=== PATIENT | male | born 1935 | race Caucasian/White ===

== ENCOUNTER 2018-04-04 08:26 | Emergency (ER) | payer MEDICARE ==
[2018-04-04 09:16] LABS: #Eosinphils 0.1 thou/uL (0.0-0.7); #Lymphocytes 1.5 thou/uL (1.20-3.40); #Monocytes 1.1 thou/uL (0.11-0.59); #Neutrophils 7.9 thou/uL (1.40-6.50); %Eosinophils 0.6 % (0.0-10.0); %Lymphocytes 14.5 % (21.0-51.0); %Monocytes 10.7 % (0.0-10.0); %Neutrophils 74.2 % (42.0-75.0); Hemoglobin 12.5 g/dL (14.0-18.0); Mean Corpuscular HGB CONC 34.4 g/dL (32.0-36.0); Mean Corpuscular Hemoglobin 31.2 pg (27.0-31.0); Mean Corpuscular Volume 90.5 fL (78.0-98.0); Platelet Count 325 thou/uL (130-400); RBC Distribution Width 12.2 % (11.5-14.5); White Blood Cell (WBC) Count 10.6 thou/uL (4.8-10.8)
--- NOTE | 2018-04-04 09:30 | RAD ---
CHEST ONE VIEW: HISTORY: Shortness of breath. COMPARISON: None. FINDINGS: Heart size is mildly enlarged. The pulmonary arteries are dilated. There are bibasilar air space op acities, in somewhat of a linear orientation. No pneumothorax or large effusion. Right upper lobe l obectomy changes. Dense calcifications of the transverse aorta. Cerclage wires at the distal left clavicle. IMPRESSION: 1. Cardiomegaly with what appears to be mild bilateral lower lobe edema. Followup recommended. 2. Pulmonary arterial hypertension. POS: [facility]
[2018-04-04 09:42] LABS: ALT (SGPT) 15 U/L (8-55); AST (SGOT) 11 U/L (5-34); Alkaline Phosphatase 56 U/L (40-150); Anion Gap 13 mmol/L (10-20); BUN (Urea Nitrogen) 14 mg/dL (8.4-25.7); Bilirubin, Total 0.8 mg/dL (0.2-1.2); Calc. Creatinine Clearance 0 mL/min (70-130); Calcium 9.4 mg/dL (7.8-10.44); Carbon Dioxide 26 mmol/L (23-31); Chloride 102 mmol/L (98-107); Estimated GFR-MDRD 77; Globulin 3.2 g/dL (2.4-3.5); Glucose 134 mg/dL (83-110); Potassium 4.4 mmol/L (3.5-5.1); Protein, Total 7.2 g/dL (5.8-8.1); Sodium 137 mmol/L (136-145)
[2018-04-04 09:46] LABS: CKMB 0.6 ng/mL (0-6.6); Troponin I Less than 0.010 ng/mL (< 0.028)
[2018-04-04] MEDS ORDERED: methylPREDNISolone Sod Succ/PF 125 MG/2 ML VIAL ONE (10:09)
[2018-04-04] MEDS ORDERED: Water For Inject, Bacteriostat 0 ML ONE (10:09)
[2018-04-04] MEDS ORDERED: Furosemide 40 MG/4 ML VIAL ONE (10:32)
[2018-04-04 11:22] LABS: Bilirubin Negative (Negative); Blood, Urine Negative (Negative); Glucose, Urine (Dipstick) Negative (Negative); Leukocyte Negative (Negative); Nitrite Negative (Negative); Protein, Urine (Dipstick) Negative (Neg-Trace); Specific Gravity, Urine 1.015 (1.005-1.030); Urobilinogen 0.2 mg/dL (0.2-1.0); pH, Urine 7.5 (5.0-9.0)
[2018-04-04 11:23] LABS: Clarity Clear (Clear)
== END 2018-04-04 14:07 | disposition home or self-care (01) ==
LOC: ERS 08:26
DX: J44.9 Chronic obstructive pulmonary disease, unspecified (principal); I50.9 Heart failure, unspecified; I48.91 Unspecified atrial fibrillation; G47.30 Sleep apnea, unspecified; E11.9 Type 2 diabetes mellitus without complications; Z79.82 Long term (current) use of aspirin; Z79.84 Long term (current) use of oral hypoglycemic drugs; Z79.899 Other long term (current) drug therapy
CPT/HCPCS: 71045; 80053; 81003; 82553; 83880; 84484; 85025; 85379; 93005; 96374; 96375; J1940; J2270; J2930; J7620

== ENCOUNTER 2018-05-23 13:35 | Outpatient (CLI) | payer MEDICARE ==
--- NOTE | 2018-05-25 13:41 | PFT ---
PATIENT HISTORY: HEIGHT: 72 in WEIGHT: 290 SMOKER: NO HOW LON YRS PACKS PER DAY: 3 PRODUCTIVE COUGH: LUNG DISEASE: PHYSICIAN INTERPRETATION FINAL REPORT: FEV1 is 2.26 liters which 73% predicted. Forced vital capacity 3.7 liters which is 89% predicted. The FEV1/FVC ratio is 58. There is no significant improvement in air flows after bronchodilatation. The residual volume and total lung capacities are normal. The DLCO is 15.38 which is 54% predicted and does not correct for volume. Maximal mandatory volume is 55 liters per minute which is low for this FEV1. IMPRESSION: Moderate obstructive pulmonary impairment is present. There is no significant reversibility after bronchodilatation. The gas exchange is decreased. Maximum Ventilatory Volume is low, which indicates the patient either gave insufficient effort or neuromuscular weakness. 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
== END 2018-05-23 13:36 | disposition home or self-care (01) ==
LOC: CP 13:35
PROVIDERS: ATTEND Internal Medicine Critical Care Medicine
DX: J44.9 Chronic obstructive pulmonary disease, unspecified (principal)
CPT/HCPCS: 94060; 94727; 94729

== ENCOUNTER 2018-07-09 01:23 | Inpatient (IN) | payer MEDICARE ==
[2018-07-09] MEDS ORDERED: Morphine 4 MG/ML VIAL ONE (01:59)
[2018-07-09 02:00] LABS: #Basophils 0.1 thou/uL (0.0-0.2); #Eosinphils 0.1 thou/uL (0.0-0.7); #Lymphocytes 1.7 thou/uL (1.20-3.40); #Monocytes 0.8 thou/uL (0.11-0.59); #Neutrophils 8.1 thou/uL (1.40-6.50); %Basophils 0.8 % (0.0-1.0); %Eosinophils 1.4 % (0.0-10.0); %Lymphocytes 15.7 % (21.0-51.0); %Monocytes 7.7 % (0.0-10.0); %Neutrophils 74.6 % (42.0-75.0); Hemoglobin 13.1 g/dL (14.0-18.0); Mean Corpuscular Volume 85.4 fL (78.0-98.0); Mean Platelet Volume 7.5 fL (7.4-10.4); Platelet Count 299 thou/uL (130-400); RBC Distribution Width 13.1 % (11.5-14.5); White Blood Cell (WBC) Count 10.8 thou/uL (4.8-10.8)
[2018-07-09 02:10] LABS: CKMB 1.2 ng/mL (0-6.6); Troponin I Less than 0.010 ng/mL (< 0.028)
[2018-07-09 02:12] LABS: ALT (SGPT) 17 U/L (8-55); AST (SGOT) 14 U/L (5-34); Albumin 4.2 g/dL (3.4-4.8); Alkaline Phosphatase 53 U/L (40-150); Anion Gap 19 mmol/L (10-20); BUN (Urea Nitrogen) 21 mg/dL (8.4-25.7); Bilirubin, Total 0.4 mg/dL (0.2-1.2); CK (CPK) 48 U/L (30-200); Calc. Creatinine Clearance 0 mL/min (70-130); Calcium 9.8 mg/dL (7.8-10.44); Carbon Dioxide 26 mmol/L (23-31); Chloride 99 mmol/L (98-107); Estimated GFR-MDRD 47; Globulin 3.2 g/dL (2.4-3.5); Glucose 143 mg/dL (83-110); Lipase 42 U/L (8-78); Potassium 4.8 mmol/L (3.5-5.1); Protein, Total 7.4 g/dL (5.8-8.1); Sodium 139 mmol/L (136-145)
[2018-07-09] MEDS ORDERED: Dextrose 5 %-0.45 % NaCl 1,000 ML IV SCH (05:24)
[2018-07-09] MEDS ORDERED: Morphine 4 MG/ML VIAL IV PRN (05:25)
[2018-07-09 05:29] VITALS: BMI 38.4
[2018-07-09] MEDS: Sodium Chloride 0.9% 1,000 ML IV SCH ×3 (06:25→20:58)
[2018-07-09] MEDS ORDERED: Dextrose 50% Abboject 50 ML SYRINGE SLOW IVP PRN (07:21)
[2018-07-09] MEDS ORDERED: HumaLOG 300 UNITS/3 ML VIAL SC PRN (07:21)
[2018-07-09] MEDS ORDERED: Dextrose 5% in Water 1,000 ML IV PRN (07:21)
[2018-07-09 08:42] LABS: ALT (SGPT) 14 U/L (8-55); AST (SGOT) 26 U/L (5-34); Albumin 3.8 g/dL (3.4-4.8); Alkaline Phosphatase 50 U/L (40-150); Anion Gap 14 mmol/L (10-20); BUN (Urea Nitrogen) 18 mg/dL (8.4-25.7); Bilirubin, Total 0.3 mg/dL (0.2-1.2); Calc. Creatinine Clearance 82 mL/min (70-130); Calcium 9.6 mg/dL (7.8-10.44); Carbon Dioxide 27 mmol/L (23-31); Chloride 101 mmol/L (98-107); Estimated GFR-MDRD 53; Globulin 3.6 g/dL (2.4-3.5); Glucose 123 mg/dL (83-110); Potassium 5.6 mmol/L (3.5-5.1); Protein, Total 7.4 g/dL (5.8-8.1); Sodium 136 mmol/L (136-145)
[2018-07-09] MEDS ORDERED: MAGNESIUM OXIDE 400 MG PO SCH (09:00)
[2018-07-09] MEDS ORDERED: [UNRECOGNIZED DRUG - OTHER] EA NARE SCH (09:00)
[2018-07-09] MEDS ORDERED: FLUTICASONE EA NARE SCH (09:00)
[2018-07-09] MEDS ORDERED: Heparin 5,000 UNITS/ML VIAL SC SCH (09:00)
[2018-07-09] MEDS ORDERED: UMECLIDIN EA NARE SCH (09:00)
[2018-07-09] MEDS ORDERED: Non-Formulary Item 1 EACH (Olmesartan Medoxomil [Benicar] 40 MG) PO SCH (09:00)
[2018-07-09] MEDS ORDERED: VILANTER EA NARE SCH (09:00)
[2018-07-09] MEDS: Famotidine/PF 20 mg/2ml Vial SLOW IVP SCH ×2 (09:07→20:51)
[2018-07-09] MEDS: Dronedarone HCl 400 MG TAB PO SCH ×2 (09:08→17:39)
[2018-07-09 10:14] LABS: Hemoglobin 12.7 g/dL (14.0-18.0); Mean Corpuscular HGB CONC 32.7 g/dL (32.0-36.0); Mean Corpuscular Hemoglobin 29.5 pg (27.0-31.0); Mean Corpuscular Volume 90.2 fL (78.0-98.0); Mean Platelet Volume 7.3 fL (7.4-10.4); Platelet Count 324 thou/uL (130-400); RBC Distribution Width 13.8 % (11.5-14.5); Red Blood Cell (RBC) Count 4.31 mill/uL (4.70-6.10); White Blood Cell (WBC) Count 9.5 thou/uL (4.8-10.8)
[2018-07-09 10:19] LABS: Band 2 % (5-11); Large Platelets SLIGHT; Lymphocytes 22 % (21-51); MDiff Complete? YES; Monocytes 8 % (0-10); Neutrophil 66 % (42-75); PLT Morphology Comment Appears Adequate; Polychromasia SLIGHT = 2-3 cells (100X) (0-2/hpf); Reactive Lymphocytes 2 % (0-10); Small Platelets SLIGHT
--- NOTE | 2018-07-09 10:34 | RAD ---
PORTABLE CHEST 1 VIEW: DATE: 07/09/2018. TIME: 2:04 a.m. HISTORY: Abdominal pain, nausea, and vomiting. FINDINGS: The heart size is borderline. No focal areas of consolidation, pneumothoraces, or pleural effusion i s seen. There is no evidence of ry pulmonary edema. IMPRESSION: No acute process. POS: [facility]
--- NOTE | 2018-07-09 10:51 | CT ---
PRELIMINARY REPORT/[facility]/EMERGENTY AFTER-HOURS PROCEDURE CT Abdomen and Pelvis With Intravenous Contrast CLINICAL HISTORY: 83 years old, male; Pain; Abdominal pain; Patient HX: Patient is an 83 year old male presenting to [facility] er for abdominal pain. Reports that pain started in the afternoon after having multiple bowel movem ents. Abdominal pain localized to mid abdomen, described as sharp, 9/10 on pain scale, intermittent, no alleviating or exacerbating factors. Reports nausea and non bloody non bilious vomit ing prior to er arrival. Reports nausea has resolved. States this afternoon he had constipation and w as straining to have a bowel movement. Reports 30 minutes after straining he had a soft bowel movemen t followed by a watery bowel movement. TECHNIQUE: Axial computed tomography images of the abdomen and pelvis with intravenous contrast. Coronal reforma tted images were created and reviewed. CONTRAST: 85 mL of [id number] administered intravenously. COMPARISON: No relevant prior studies available. FINDINGS: Lung bases: Mild emphysema. ABDOMEN: Liver: No acute findings. Fatty liver. No mass. Gallbladder and bile ducts: No calcified stones. No ductal dilation. Pancreas: No ductal dilation. No mass. Spleen: No acute findings. No mass. Adrenals: No mass. Kidneys and ureters: No acute findings. No hydronephrosis. No solid mass. Stomach and bowel: Mildly dilated fluid filled small bowel loops within the abdomen with scattered ai r-fluid levels. Bowel loops proximal and distal to these loops are nondilated. Trace mesenteric stran ding/edema. Colonic diverticulosis. PELVIS: Appendix: No findings to suggest acute appendicitis. Bladder: No acute findings. No mass. Reproductive: No acute findings. ABDOMEN and PELVIS: Intraperitoneal space: Trace cul-de-sac free fluid. No free air. Bones/joints: No acute fracture. Degenerative changes of the spine. Sacral Tarlov cyst. Soft tissues: Prior ventral hernia repair. Vasculature: Atherosclerotic calcifications of the aorta and branches including visceral artery and coronary calcifications. No abdominal aortic aneurysm. Lymph nodes: No lymphadenopathy. IMPRESSION: Focally dilated small bowel loops described above could relate to enteritis, partial small bowel obst ruction/ileus. Thank you for allowing us to participate in the care of your patient. Dictated and Authenticated by: Lew Ortega MD 07/09/2018 3:25 AM Central Time ([place] & [place]) FINAL REPORT EMERGENT AFTER HOURS CT OF ABDOMEN AND PELVIS PERFORMED WITH INTRAVENOUS CONTRAST ENHANCEMENT: HISTORY: Abdominal pain after having bowel movements. Abdominal pain is localized more to the mid abdomen. FINDINGS: The lung bases show some chronic-appearing change. There are fatty changes of the liver. The spleen is within normal limits of size. The pancreas and gallbladder regions appear unremarkable. Right and left adrenal glands and right and left kidneys are normal in size. The kidneys are nonobst ructed. There is no significant periaortic or mesenteric adenopathy. There is a focal group of mild ly dilated fluid-filled small bowel loops. There is a transition to normal caliber more distal small bowel. There are postoperative changes also seen. Surgical clips are seen in the omentum and what appears to be a prior ventral hernia repair. There is some trace edema change within the mesentery a ssociated with this. There is a calcified density seen anterior to the mid descending colon. This i s probably the sequelae of the previous surgery. CT OF PELVIS PERFORMED WITH CONTRAST ENHANCEMENT: Some sigmoid diverticulosis is noted. The appendix region appears unremarkable. IMPRESSION: 1. Postoperative changes with evidence of a previous ventral hernia repair. There is a group of mil dly dilated mid ileal small bowel loops with transition to more normal-caliber loops both proximal an d distal to this. I would suspect given the history of the surgery that this probably represents a p artial small bowel obstruction probably related to some adhesions. A focal enteritis would be a anot her possibility. I think this is somewhat less likely. 2. Sigmoid diverticulosis. 3. Fatty changes of the liver. 4. This report is in agreement with the temporary report issued by [facility]. POS: [facility]
[2018-07-09] MEDS: Morphine 2 MG/ML SYRINGE SLOW IVP PRN ×2 (11:19→14:19)
--- NOTE | 2018-07-09 11:30 | CON ---
DATE OF CONSULTATION: 07/09/2018 CHIEF COMPLAINT: Abdominal pain. HISTORY: This is an 83-year-old male who has a 12-hour history of central abdominal pain now more ri ght and left lower abdomen. He had vomiting yesterday. He has had loose stools for the last 2 weeks prior to this. He last had a bowel movement at 5:00 p.m. last night with some flatus. His last col onoscopy was more than 10 years ago in [facility]. PAST MEDICAL HISTORY: Significant for congestive heart failure, COPD, diabetes mellitus, morbid obes ity, atrial fibrillation. PAST SURGICAL HISTORY: Coronary stents about [address] Ni, he has had an umbilic al hernia repair and then a second ventral hernia repair with mesh years ago. He has had a cardiac a blation for atrial fibrillation. MEDICATIONS: Include carvedilol 25 daily, metformin 1000 b.i.d., mag ox 400 mg b.i.d., Torsemide 20 daily, Eliquis 5 b.i.d., glyburide 1.5, Multaq 400 b.i.d., Trelegy inhaler. ALLERGIES: He has an allergy to LISINOPRIL. SOCIAL HISTORY: He is . 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 No tobacco, social alcohol. PHYSICAL EXAMINATION: VITAL SIGNS: Temperature 98, pulse 58, blood pressure 149/64. GENERAL: He is a morbidly obese male. He is awake, alert. HEENT: Unremarkable. LUNGS: Clear. HEART: Regular rate and rhythm. ABDOMEN: Obese, soft. He has well healed surgical scar in the midline from previous hernia surgery. He has mild tenderness both right lower quadrant and left lower quadrant, no palpable hernias. Occ asional bowel sounds. EXTREMITIES: Unremarkable. LABORATORY AND X-RAY FINDINGS: His white count is 9.5, hemoglobin and hematocrit 12 and 38, platelet count 324. Electrolytes, sodium 136, potassium 5.6, chloride 101, creatinine 1.29, glucose of 123. He has his CT scan of the abdomen showing some focal areas of small bowel dilatation with some scatt ered air fluid levels. There is some mesenteric stranding and edema as well as diverticulosis. ASSESSMENT: Focally dilated small bowel loops consistent with possible partial small-bowel obstructi on versus ileus. PLAN: IV hydration, NG suction, Cardiology consultation and GI consultation.
[2018-07-09 11:50] LABS: Creatinine, Urine 85.34 mg/dL (63-166)
--- NOTE | 2018-07-09 12:27 | PDOC.EVN ---
Event Note - Event Note Event Note: h&p dictated [id number]
--- NOTE | 2018-07-09 12:33 | RAD ---
KUB: HISTORY: NG tube placement: FINDINGS: An NG tube tip is visualized. It is at the GE junction and should e advanced for more optimal placem ent. IMPRESSION: Nasogastric tube with the tip in the distal esophagus near the gastroesophageal junction and should b e advanced 3-4 inches. POS: [facility]
--- NOTE | 2018-07-09 13:22 | HP ---
CHIEF COMPLAINT: Abdominal pain. HISTORY OF PRESENT ILLNESS: This is an 83-year-old male with a history of congestive heart failure, COPD, atrial fibrillation, who presents with sudden onset of lower abdominal sharp, intermittent pain that started after having had multiple loose bowel movements. The pain is accompanied by nausea and nonbloody , nonbilious vomiting. This was the immediately preceded by an episode of constipation. After significant amount of straining, the patient had a solid bowel movement followed by the diarrheal one as noted above, and since that point in time has been experiencing sharp, intermittent, crampy abdominal pain. At the time of my evaluation, the patient has been medicated for pain with morphine and his nausea has resolved. He has no continued symptoms with treatment while at rest. His daughter and are with him at bedside. REVIEW OF SYSTEMS: As per HPI. Constitutional: No fevers, no chills, no significant weight loss or gain. HEENT: No new headaches, vision changes, lightheadedness or dizziness. Cardiovascular: Denies any chest pain, chest pressure, shortness of breath which he states that he has a congestive heart failure exacerbation. Respiratory: Denies any shortness of breath with exertion or at rest. Denies any congestion or recent upper respiratory infection. Denies any recent cough. Gastrointestinal: As noted above. Genitourinary: Denies any dysuria or changes in urinary frequency, quality, quantity or odor. Musculoskeletal: Denies any new myalgias or arthralgias. PAST MEDICAL HISTORY: 1. As per above, significant for congestive heart failure, unknown EF. 2. Chronic COPD. 3. Atrial fibrillation. 4. Obstructive sleep apnea. 5. Type 2 diabetes. 6. Status post cardiac ablation. PAST SURGICAL HISTORY: 1. Status post cardiac stents x2 in 2016. 2. Status post pneumothorax with subsequent thoracotomy. 3. Status post hernia repair with mesh x2. 4. Status post left ankle surgery. HOME MEDICATIONS: As per EMR and include the following, 1. Fluticasone/umeclidinium/vilanterol 1 puff alternating naris daily. 2. Dronedarone HCL 400 mg p.o. b.i.d. 3. Glyburide 1.25 mg p.o. daily. 4. Apixaban 5 mg p.o. b.i.d. 5. Metformin 500 mg p.o. b.i.d. 6. Olmesartan-medoxomil 40 mg p.o. daily. 7. Magnesium oxide 400 mg p.o. b.i.d. 8. Furosemide 20 mg p.o. daily. ALLERGIES: No known drug allergies. FAMILY HISTORY: No notable family history for gastrointestinal disorders or obstruction that the patient is aware of. SOCIAL HISTORY: The patient is accompanied today by his and daughter. They are jointly his medical decision makers if he is unable to make his own medical decision. He wishes to be FULL CODE at this point in time. No active tobacco, alcohol or illicit drug use. PHYSICAL EXAMINATION: GENERAL: The patient is awake, alert, appropriate, in no acute distress, lying in the hospital bed. HEENT: Normocephalic, atraumatic. Moist mucous membranes, equal ocular motions are intact. CARDIOVASCULAR: S1, S2, soft heart tones. No murmurs, rubs or gallops appreciated. Pulses 2+ bilateral upper extremities without pitting pedal edema. RESPIRATORY: Reasonable air movement. No wheezes, rales or rhonchi. No crackles. No conversational dyspnea, clear to auscultation bilaterally. ABDOMEN: Obese, large decreased but positive bowel sounds, soft, tender to palpation along the right and left flank, but no tenderness or pain without palpation. MUSCULOSKELETAL: Moving all 4 extremities independently and able to self- reposition in the bed. LABORATORY DATA AND IMAGIN. On 07/09/2018, abdomen and pelvis CT. Impression: "Focally dilated small bowel loops described above could relate to enteritis, partial small bowel obstruction/ileus." 2. On 07/09/2018, chest x-ray. Impression: "No acute process." 3. WBC 10.8, hemoglobin 13.1, hematocrit 38.5, platelets 299, sodium 139, potassium 4.8, chloride 99, bicarbonate 26, BUN 21, creatinine 1.45, glucose 143 , calcium 9.8, total bilirubin 0.4, AST 14, ALT 17, alkaline phosphatase 53. Troponin less than 0.1, total protein 7.4, albumin 4.2, lipase 42. ASSESSMENT AND PLAN: This is an 83-year-old male who presents with a chief complaint of sudden onset abdominal pain earlier today. 1. Abdominal pain with imaging suggestive of possibly small-bowel obstruction versus ileus versus enteritis without leukocytosis or any other signs and symptoms suggestive of infection. Suspect that this is less likely. We will continue to monitor closely with a low threshold for empiric antibiotics. Currently, the patient is n.p.o., IV fluids are ongoing for maintenance fluids. I appreciate surgical consultation as well. While the patient is n.p.o. with IV fluids, we will hold the patient's furosemide along with the patient's oral antihyperglycemic agents. Instead, the patient will have close hemodynamic monitoring along with glucose Accu-Cheks at bedside. Sliding scale insulin will be used if and as needed. 2. History of congestive heart failure. Please see the discussion of above. We will have to carefully monitor the patient's electrolytes as well. 3. Acute kidney injury with an unknown baseline creatinine. Patient is currently receiving IV fluids. We will recheck a BMP again in the morning and check urine electrolytes. 4. Type 2 diabetes. While the patient is n.p.o., we will continue with Accu- Cheks, but hold the patient's glyburide and metformin. 5. History of atrial fibrillation. Continue the patient on his home regimen. There is concern for a partial small-bowel obstruction. It appears that the patient is currently on Eliquis for secondary prevention of atrial fibrillation. We will currently withhold the patient's Eliquis in case he does need to go to the OR; however, if he appears to be significantly improving with medical management and will not need any operative procedure, then would resume Eliquis at that point in time. 6. Diet: N.p.o. 7. Activity: As tolerated. 8. Deep venous thrombosis prophylaxis: Sequentials. 9. Admit the patient inpatient FULL CODE. MTDD
[2018-07-09] MEDS: Ondansetron PF 4 MG/2 ML Vial IVP PRN (14:15)
--- NOTE | 2018-07-09 14:46 | CON ---
DATE OF CONSULTATION: 07/09/2018 REASON FOR CONSULTATION: Atrial fibrillation and anticoagulation therapy and recent small bowel obst ruction? PRIMARY FAMILY PRACTICE DOCTOR: Dr. Jackelyn Ni. HISTORY OF PRESENT ILLNESS: Mr. Mariscal is a very pleasant 83-year-old gentleman who recently presente d with abdominal discomfort. There is a question on small bowel obstruction. He has a history of at rial fibrillation, status post ablation. He is currently on Eliquis b.i.d. Last dose was last eveni ng. No PND, orthopnea, lower extremity edema, chest pain or pressure noted. Last echo dated 018 with LVEF of 55%-60% with moderate left atrial enlargement with no or AI present. PAST MEDICAL HISTORY: Diabetes mellitus, hypertension, vascular disease, hernia repair, ankle surger y, CAD status post stent placement. ALLERGIES: LISINOPRIL. HOME MEDICATIONS: Fluoxetine, metformin, magnesium, carvedilol, Lasix, olmesartan, Crestor, Eliquis and Multaq. PHYSICAL EXAMINATION: GENERAL: Patient is a pleasant male who is in no acute distress. The patient appears his stated age . VITAL SIGNS: Blood pressure 150/76, pulse , temperature 97.6. NEUROLOGIC: The patient is alert and oriented times 3 with no focal neurologic deficits. HEENT: Sclerae without icterus. Mouth has moist mucous membranes with normal pallor. NECK: No JVD. Carotid upstroke brisk. No bruits bilaterally. LUNGS: Clear to auscultation with unlabored respirations. BACK: No scoliosis or kyphosis. CARDIAC: Regular rate and rhythm with normal S1 and S2. No S3 or S4 noted. No significant rubs, mu rmurs, thrills, or gallops noted throughout the precordium. PMI is not displaced. There is no claudy ternal heave. ABDOMEN: Distended with decreased bowel sounds. EXTREMITIES: 2+ femoral and 2+ dorsalis pedis pulses. No cyanosis, clubbing, or edema. SKIN: No gross abnormalities. PERTINENT LABORATORY LABS: Hemoglobin 12.7, white blood cell count 9.5, platelet count 324,000, crea tinine 1.29. IMPRESSION: 1. ? small-bowel obstruction. 2. Atrial fibrillation on anticoagulation therapy. 3. Coronary artery disease, status post stent placement. RECOMMENDATIONS: Last dose of Eliquis was last evening. At this point, we will stop Eliquis and philly ce him on Lovenox 1 mg/kg subcu q.12. I have discussed with Dr. Rafael Rosario. If he does need to have an operation, it provides more flexibility and a more narrow window versus Eliquis. Last LVEF was f elt to be within normal limits dated 04/2018. Further recommendations per Dr. Jackelyn Ni in a.m.
--- NOTE | 2018-07-09 16:23 | PDOC.EVN ---
Event Note - Event Note Event Note: Chart reviewed. Patient seen. Will follow.
--- NOTE | 2018-07-09 18:16 | CON ---
DATE OF CONSULTATION: 07/09/2018 REQUESTING PHYSICIAN: Dr. Rafael Rosario. REASON FOR CONSULTATION: Abdominal pain. HISTORY OF PRESENT ILLNESS: Karlo Mariscal is an 83-year-old gentleman with a history of obesity, quynh nary artery disease, atrial fibrillation, status post ablation, on Eliquis, COPD, diabetes and conges tive heart failure. He has a history of a couple of ventral hernia repairs years ago. He says he rust s had a couple of colonoscopies, though the last time would have been just over 20 years ago and he d id have a history of colon polyps. He has no chronic gastrointestinal symptoms. He says for maybe t he past couple of weeks, his bowel pattern has changed a bit to a feeling of constipation, passage of a solid stool followed by passage of a lot of loose stool and this will occur about every other day. There is no melena or hematochezia. Yesterday, the same thing happened. He felt acutely constipat ed, spent a lot of time on the toilet straining, eventually had multiple loose bowel movements; [facility] er, this time it was followed by generalized abdominal pain. He describes the pain as being all over the abdomen centered around the umbilical area, but really in the upper and lower abdomen as well. The pain is fairly constant and unrelenting. After the pain, onset yesterday he ate a small dinner a nd had some Tums, but did not really feel like it helped. This morning, the pain was persistent and he became nauseated and had a couple episodes of nonbloody emesis. He presented to the hospital for evaluation. Laboratory studies show normal lipase, normal LFTs, but a CT of the abdomen and pelvis d emonstrates a group of mildly dilated mid ileal small bowel loops, with normal caliber bowel loops ariel th proximal and distal to this area. This is felt to represent probable partial bowel obstruction du e to adhesions, versus focal enteritis. There are no other acute processes in the abdomen. A nasoga stric tube was placed. The patient denies any current nausea. He has not vomited since he was here, he has not had any bowel movement today or passed any flatus since his arrival. He does not feel th e pain is much better, though morphine was good at alleviating this transiently. He has been evaluat ed by Dr. Rosario earlier today. REVIEW OF SYSTEMS: Full review of systems including constitutional, head, eyes, ears, nose, throat, GI, , cardiovascular, respiratory, musculoskeletal, and neurologic systems is negative except as no noemi in HPI. PAST MEDICAL HISTORY: Congestive heart failure, atrial fibrillation on Eliquis, COPD, obstructive sl eep apnea, morbid obesity, type 2 diabetes, status post cardiac ablation, status post cardiac stents x2 in 2016, status post pneumothorax, subsequent thoracotomy, status post hernia repair with mesh, x2 , status post left ankle surgery. ALLERGIES: No known drug allergies. HOME MEDICATIONS: Fluticasone/umeclidinium/vilanterol one puff alternating naris daily, dronedarone, glyburide, Eliquis, metformin, olmesartan/medoxomil, magnesium oxide 400 mg b.i.d., furosemide 20 mg daily. FAMILY HISTORY: Negative for gastrointestinal illness. SOCIAL HISTORY: No active tobacco, alcohol or drug abuse. PHYSICAL EXAMINATION: VITAL SIGNS: Temperature 97.6, pulse 52, blood pressure 150/76, 97% oxygen saturation on 2 liters na sendy cannula. GENERAL: An 83-year-old gentleman, obese, lying in bed comfortably in no acute distress. SKIN: No jaundice, no rash visible or palpable. EYES: No scleral icterus. Extraocular movements intact. ENT: Mucous membranes moist, no oral lesions. He has a nasogastric tube in the right naris. THYROID: Nontender to palpation. HEART: Regular rate and rhythm. LYMPH: No submandibular, supraclavicular lymphadenopathy. LUNGS: Distant breath sounds due to body habitus clear to auscultation bilaterally. ABDOMEN: He is obese. The abdomen is soft. There is some generalized mild tenderness to palpation throughout the abdomen, really nonfocal. No guarding or rebound tenderness. He has a vertical midli ne surgical scar, which is well healed. EXTREMITIES: No peripheral edema. VESSELS: Radial pulses 2+ bilaterally. NEUROLOGICAL: Cranial nerves II-XII intact bilaterally. No focal deficits. LABORATORY STUDIES: WBC 9.5, hemoglobin 12.7, platelets 324. Sodium 136, potassium 5.6, BUN 18, cre atinine 1.29, glucose 118. LFTs all normal with total bilirubin 0.3, alkaline phosphatase 50, AST 26 , ALT 14, albumin 3.8, lipase 42. IMAGING STUDIES: CT of the abdomen and pelvis from earlier today, as detailed in the HPI. ASSESSMENT AND PLAN: 1. Generalized abdominal pain. 2. Nausea and vomiting. 3. Partial small-bowel obstruction, with CT scan showing focal area of small bowel dilation in the m id ileum. I discussed with the patient and his family that the CT findings are suggestive of probabl e focal partial ileal obstruction. This could be secondary to adhesions or alternatively an acute en teritis. I think focal enteritis is a bit less likely. It would be reasonable to get stool studies for infectious pathogens when he starts having bowel movements again. There is really no utility to attempting any kind of endoscopy at this time. I would advise expectant management, n.p.o. status fo r now, await bowel function to return. He has already been evaluated by General Surgery and at this point, no operative intervention or exploration is planned. The patient is overdue for surveillance colonoscopy at some point, but I would certainly defer this to the outpatient setting at some point a fter these acute issues are resolved. Thank you for the consultation. Please call any time with questions or concerns.
[2018-07-09] MEDS: Enoxaparin Sodium 100 MG/ML SYRINGE SC SCH (20:48)
[2018-07-09] MEDS: Enoxaparin Sodium 30 MG/0.3 ML SYRINGE SC SCH (20:49)
[2018-07-09] MEDS ORDERED: Enoxaparin Sodium 120 MG/0.8 ML SYRINGE SC SCH (21:00)
[2018-07-10 05:15] LABS: #Eosinphils 0.1 thou/uL (0.0-0.7); #Lymphocytes 1.5 thou/uL (1.20-3.40); #Monocytes 0.8 thou/uL (0.11-0.59); %Eosinophils 1.6 % (0.0-10.0); %Lymphocytes 20.4 % (21.0-51.0); %Monocytes 10.3 % (0.0-10.0); %Neutrophils 67.7 % (42.0-75.0); Hemoglobin 12.3 g/dL (14.0-18.0); Mean Corpuscular HGB CONC 32.1 g/dL (32.0-36.0); Mean Corpuscular Hemoglobin 29.1 pg (27.0-31.0); Mean Corpuscular Volume 90.7 fL (78.0-98.0); Mean Platelet Volume 7.4 fL (7.4-10.4); Platelet Count 315 thou/uL (130-400); RBC Distribution Width 13.4 % (11.5-14.5); Red Blood Cell (RBC) Count 4.22 mill/uL (4.70-6.10); White Blood Cell (WBC) Count 7.3 thou/uL (4.8-10.8)
[2018-07-10 05:26] LABS: Anion Gap 11 mmol/L (10-20); BUN (Urea Nitrogen) 13 mg/dL (8.4-25.7); Calc. Creatinine Clearance 97 mL/min (70-130); Calcium 8.8 mg/dL (7.8-10.44); Carbon Dioxide 26 mmol/L (23-31); Chloride 106 mmol/L (98-107); Estimated GFR-MDRD 65; Glucose 123 mg/dL (83-110); Potassium 4.3 mmol/L (3.5-5.1); Sodium 139 mmol/L (136-145)
[2018-07-10] MEDS: Ipratropium Bromide 2.5 ml Neb NEB SCH ×4 (06:13→19:53)
[2018-07-10] MEDS: Mometasone/Formoterol 120 PUFF INHALER INH SCH ×2 (06:15→19:51)
[2018-07-10] MEDS: Dronedarone HCl 400 MG TAB PO SCH ×2 (07:42→15:49)
[2018-07-10] MEDS: Sodium Chloride 0.9% 1,000 ML IV SCH ×3 (08:41→21:31)
[2018-07-10] MEDS: Enoxaparin Sodium 30 MG/0.3 ML SYRINGE SC SCH ×2 (08:42→21:13)
[2018-07-10] MEDS: Enoxaparin Sodium 100 MG/ML SYRINGE SC SCH ×2 (08:42→21:13)
[2018-07-10] MEDS: Famotidine/PF 20 mg/2ml Vial SLOW IVP SCH ×2 (08:43→21:14)
--- NOTE | 2018-07-10 09:51 | PRG ---
DATE OF SERVICE: 07/10/2018. SUBJECTIVE: Mr. Mariscal is feeling a lot better. His abdominal pain resolved yesterday afternoon and has not recurred. He is not having any nausea or vomiting. He has been passing gas, though no bowel movements yet. OBJECTIVE: VITAL SIGNS: Temperature 98.1, pulse 63, blood pressure 147/76, 95% oxygen saturation on 2 liters na sendy cannula. GENERAL: No acute distress. HEART: Regular rate and rhythm. LUNGS: Clear to auscultation bilaterally. ABDOMEN: Obese, bowel sounds are present, though hypoactive. The abdomen is soft and nontender to p alpation throughout. EXTREMITIES: No peripheral edema. LABORATORY STUDIES: WBC 7.3, hemoglobin 12.3, platelets 315. Sodium 139, potassium 4.3, BUN 13, cre atinine 1.09, glucose 114. IMAGING STUDIES: Abdominal x-ray from earlier today demonstrates some interval decrease in caliber o f distended small bowel loops. There is air in the colon. NG tube is in good position. ASSESSMENT AND PLAN: 1. Generalized abdominal pain, resolved. 2. Nausea and vomiting, improved. 3. Partial small-bowel obstruction, clinically appears to be improving. The patient has had good sy mptomatic improvement over the past day. I would leave dietary advancement decisions to the surgical team, they may want to get a Gastrografin small bowel follow-through but otherwise, I think that the patient's diet could be advanced today and if no recurrence of significant abdominal pain hopefully he could be discharged from the hospital within the next day. No plan for any endoscopy at this poin t. We will plan to see him back in clinic in the next couple of weeks, and at that time, we will dis cuss whether he wants to have a surveillance colonoscopy at some point in the near future. Please call back anytime with questions or concerns.
--- NOTE | 2018-07-10 09:51 | RAD ---
ABDOMEN ONE VIEW: History: 83-year-old male with history of small bowel obstruction. Comparison: 07-09-18 FINDINGS: NG tube is in place. There is some persistent gas and at least borderline sized small bowel. There is also some gas noted within the colon. There appears to be less small bowel distention than seen on t he prior study. IMPRESSION: Resolving small bowel obstruction. Consider short term follow up or Gastrografin small bowel for furt her assessment. POS: KIRSTIE
--- NOTE | 2018-07-10 10:40 | PRG ---
DATE OF SERVICE: 07/10/2018 SUBJECTIVE: The patient reports that he is feeling a little better, really having no pain. He is pa ssing some gas, no nausea or vomiting. OBJECTIVE: VITAL SIGNS: Temperature is 98.1, pulse 63, blood pressure 147/76. GENERAL: He is looking good. He is awake, alert, in no apparent distress. ABDOMEN: Obese, soft, no tenderness. His NG output about 300 mL. LABORATORY DATA: His white count 7, H and H 12 and 38, platelet count 315. Electrolytes are fine. KUB shows some improvement. PLAN: Small bowel follow through with Gastrografin.
--- NOTE | 2018-07-10 12:41 | PDOC.PN ---
- Subjective Encounter Start Date: 07/10/18 Encounter Start Time: 08:20 Pt seen for followup re: SBO. passing flatus. No BM yet. Abdo pain better. No nausea or vomiting. - Objective Resuscitation Status: Resuscitation Status FULL:Full Resuscitation MAR Reviewed: Yes Vital Signs & Weight: Vital Signs (12 hours) Temp Pulse Resp BP Pulse Ox 07/10/18 09:35 63 16 94 L 07/10/18 08:12 98.1 F 63 18 147/76 H 95 07/10/18 06:15 71 16 92 L 07/10/18 06:13 71 16 92 L 07/10/18 04:00 97.5 F L 69 18 154/80 H 91 L Weight Weight 283 lb 1.176 oz I&O: 07/09/18 07/10/18 07/11/18 06:59 06:59 06:59 Intake Total 800 Output Total 1450 Balance -650 Result Diagrams: 07/10/18 04:32 07/10/18 04:32 Additional Labs: Accuchecks 07/10/18 07/10/18 07/10/18 08:17 04:57 00:12 POC Glucose 114 H 117 H 114 H 07/09/18 07/09/18 20:05 17:02 POC Glucose 110 117 H labs reviewed by me Phys Exam - Physical Examination Obese HEENT: moist MMs, sclera anicteric, oral pharynx no lesions, 2+ tonsils Neck: no nodes, no JVD, supple, full ROM Respiratory: no wheezing, no rales, no rhonchi, clear to auscultation bilateral Cardiovascular: no rub, irregular S1, S2 Gastrointestinal: soft, non-tender, no distention, positive bowel sounds Neurological: moves all 4 limbs Psychiatric: normal affect, A&O x 3 Dx/Plan (1) SBO (small bowel obstruction) Code(s): K56.609 - UNSP INTESTNL OBST, UNSP TO PARTIAL VERSUS COMPLETE OBST Status: Acute Comment: clinically improving (2) Chronic a-fib Code(s): I48.2 - CHRONIC ATRIAL FIBRILLATION Status: Chronic Comment: rivaroxaban on hold, pt on therapeutic Lovenox (3) DM2 (diabetes mellitus, type 2) Status: Chronic Comment: continue accuchecks, insulin sliding scale - Plan * . Review of Systems - Review of Systems Constitutional: negative: fever, chills, sweats, weakness, malaise Respiratory: negative: Cough, Shortness of Breath, SOB with Excertion, Pleuritic Pain, Wheezing Cardiovascular: negative: chest pain, palpitations, orthopnea, paroxysmal nocturnal dyspnea, edema, light headedness Gastrointestinal: Abdominal Pain, Constipation. negative: Nausea, Vomiting, Diarrhea, Melena, Hematochezia, Other Genitourinary: negative: Dysuria, Frequency, Incontinence, Hematuria, Retention Skin: negative: Rash, Lesions, Jose, Bruising - Medications/Allergies Allergies/Adverse Reactions: Allergies Allergy/AdvReac Type Severity Reaction Status Date / Time No Allergy Information Allergy Verified 07/09/18 05:56 Available Medications: Current Medications Dextrose/Water (Dextrose 50%) 25 gm SLOW IVP PRN PRN PRN Reason: Hypoglycemia Dronedarone (Multaq) 400 mg PO BID-WM [facility] Last Admin: 07/10/18 07:42 Dose: Not Given Enoxaparin Sodium (Lovenox) 100 mg SC 0900,2099 [facility] Last Admin: 07/10/18 08:42 Dose: 100 mg Enoxaparin Sodium (Lovenox) 30 mg SC 0900,2100 [facility] Last Admin: 07/10/18 08:42 Dose: 30 mg Famotidine (Pepcid) 20 mg SLOW IVP Q12HR [facility] Last Admin: 07/10/18 08:43 Dose: 20 mg Glucagon (Glucagon) 1 mg IM PRN PRN PRN Reason: Hypoglycemia Sodium Chloride (Normal Saline 0.9%) 1,000 mls @ 100 mls/hr IV .Q10H [facility] Last Admin: 07/10/18 08:41 Dose: 1,000 mls Dextrose/Water (D5w) 1,000 mls @ 0 mls/hr IV .Q0M PRN PRN Reason: Hypoglycemia Insulin Human Lispro (Humalog) 0 units SC .MILD SLIDING SCALE PRN PRN Reason: Mild Correctional Scale Ipratropium [place] (Atrovent) 2.5 ml NEB QID-RT [facility] Last Admin: 07/10/18 09:35 Dose: 2.5 ml Mometasone Furoate/Formoterol Fumar (Dulera 100 Mcg/5 Mcg Inhaler) 2 puff INH BID-RT [facility] Last Admin: 07/10/18 06:15 Dose: 2 puff Morphine Sulfate (Morphine) 2 mg SLOW IVP Q4H PRN PRN Reason: Pain Last Admin: 07/09/18 14:19 Dose: 2 mg Ondansetron HCl (Zofran) 4 mg IVP Q6H PRN PRN Reason: Nausea/Vomiting Last Admin: 07/09/18 14:15 Dose: 4 mg Sodium Chloride (Flush - Normal Saline) 10 ml IVF Q12HR [facility] Last Admin: 07/10/18 08:43 Dose: Not Given Sodium Chloride (Flush - Normal Saline) 10 ml IVF PRN PRN PRN Reason: Saline Flush
--- NOTE | 2018-07-10 14:55 | RAD ---
SMALL BOWEL SERIES: HISTORY: An 83-year-old male with a history of follow-up small bowel obstruction. FINDINGS: The patient was given Gastrografin through the NG tube. Images were obtained out to 1 hour, which de monstrate contrast passage through a mildly dilated small bowel into a normal appearing terminal ileu m and extending throughout the colon. IMPRESSION: Partial small bowel obstruction with some dilatation of some of the mid small bowel loops but with ra pid progression of oral contrast through the entire small bowel and into the colon after one hour. POS: KIRSTIE
[2018-07-10] MEDS ORDERED: MD-Gastroview 120 ML BOT ONE (15:10)
[2018-07-10] MEDS: Morphine 2 MG/ML SYRINGE SLOW IVP PRN (15:29)
[2018-07-10] MEDS: Ondansetron PF 4 MG/2 ML Vial IVP PRN (15:29)
[2018-07-11] MEDS: Morphine 2 MG/ML SYRINGE SLOW IVP PRN ×2 (03:02→21:07)
[2018-07-11] MEDS: Ipratropium Bromide 2.5 ml Neb NEB SCH ×4 (06:37→18:13)
[2018-07-11] MEDS: Mometasone/Formoterol 120 PUFF INHALER INH SCH ×2 (06:39→18:12)
[2018-07-11] MEDS: Dronedarone HCl 400 MG TAB PO SCH ×2 (07:48→17:35)
--- NOTE | 2018-07-11 08:15 | PRG ---
DATE OF SERVICE: 07/11/2018 SUBJECTIVE: The patient reports that he is feeling better. He is having multiple bowel movements. No nausea or vomiting. His small bowel follow through showed some slight delay, but less than an yuridia r to the colon. PHYSICAL EXAMINATION: VITAL SIGNS: Temperature is 97.6, pulse 69, blood pressure 186/74. ABDOMEN: Soft, nondistended and nontender. ASSESSMENT: Small-bowel obstruction, resolved. PLAN: Discontinue NG, clear liquid diet.
[2018-07-11] MEDS: Famotidine/PF 20 mg/2ml Vial SLOW IVP SCH ×2 (08:21→19:33)
[2018-07-11] MEDS: Enoxaparin Sodium 30 MG/0.3 ML SYRINGE SC SCH ×2 (08:21→19:33)
[2018-07-11] MEDS: Enoxaparin Sodium 100 MG/ML SYRINGE SC SCH ×2 (08:21→19:33)
[2018-07-11] MEDS: Sodium Chloride 0.9% 1,000 ML IV SCH ×2 (08:26→19:33)
--- NOTE | 2018-07-11 16:52 | PDOC.PN ---
- Subjective Encounter Start Date: 07/11/18 Encounter Start Time: 10:00 Pt seen for followup re: SBO. Denies chest pain, shortness of breath, fevers or chills. Having bowel movements. - Objective Resuscitation Status: Resuscitation Status FULL:Full Resuscitation MAR Reviewed: Yes Vital Signs & Weight: Vital Signs (12 hours) Temp Pulse Resp BP Pulse Ox 07/11/18 16:00 98.1 F 68 18 162/72 H 95 07/11/18 13:32 74 16 95 07/11/18 10:58 97.4 F L 70 20 171/68 H 92 L 07/11/18 09:37 70 16 94 L 07/11/18 08:00 92 L 07/11/18 07:39 97.6 F 69 18 186/74 H 92 L 07/11/18 06:39 72 16 94 L 07/11/18 06:37 72 16 94 L Weight Admit Weight 283 lb 1.176 oz Weight 283 lb 1.176 oz I&O: 07/10/18 07/11/18 07/12/18 06:59 06:59 06:59 Intake Total 800 1200 960 Output Total 1450 50 Balance -650 1150 960 Result Diagrams: 07/10/18 04:32 07/10/18 04:32 Additional Labs: Accuchecks 07/11/18 07/11/18 07/11/18 10:50 07:28 03:08 POC Glucose 168 H 118 H 105 07/10/18 20:00 POC Glucose 113 H Labs reviewed by me Phys Exam - Physical Examination Constitutional: NAD HEENT: moist MMs Neck: supple Respiratory: clear to auscultation bilateral Cardiovascular: irregular Gastrointestinal: soft, non-tender, positive bowel sounds Musculoskeletal: edema present Neurological: moves all 4 limbs Psychiatric: normal affect Dx/Plan (1) SBO (small bowel obstruction) Code(s): K56.609 - UNSP INTESTNL OBST, UNSP TO PARTIAL VERSUS COMPLETE OBST Status: Acute Comment: Improving, having bowel movements. NG tube removed. On clear fluids. (2) Chronic a-fib Code(s): I48.2 - CHRONIC ATRIAL FIBRILLATION Status: Chronic Comment: continue therapeutic Lovenox, continue to hold rivaroxaban until discharge (3) DM2 (diabetes mellitus, type 2) Status: Chronic Comment: reasonably controlled - Plan * . Review of Systems - Review of Systems Cardiovascular: negative: chest pain, palpitations, orthopnea, paroxysmal nocturnal dyspnea, edema, light headedness Gastrointestinal: negative: Nausea, Abdominal Pain, Diarrhea, Melena, Hematochezia - Medications/Allergies Allergies/Adverse Reactions: Allergies Allergy/AdvReac Type Severity Reaction Status Date / Time No Allergy Information Allergy Verified 07/09/18 05:56 Available Medications: Current Medications Dextrose/Water (Dextrose 50%) 25 gm SLOW IVP PRN PRN PRN Reason: Hypoglycemia Dronedarone (Multaq) 400 mg PO BID-WM [facility] Last Admin: 07/11/18 07:48 Dose: Not Given Enoxaparin Sodium (Lovenox) 100 mg SC 0900,2100 [facility] Last Admin: 07/11/18 08:21 Dose: 100 mg Enoxaparin Sodium (Lovenox) 30 mg SC 0900,2100 [facility] Last Admin: 07/11/18 08:21 Dose: 30 mg Famotidine (Pepcid) 20 mg SLOW IVP Q12HR [facility] Last Admin: 07/11/18 08:21 Dose: 20 mg Glucagon (Glucagon) 1 mg IM PRN PRN PRN Reason: Hypoglycemia Sodium Chloride (Normal Saline 0.9%) 1,000 mls @ 100 mls/hr IV .Q10H [facility] Last Admin: 07/11/18 08:26 Dose: Not Given Dextrose/Water (D5w) 1,000 mls @ 0 mls/hr IV .Q0M PRN PRN Reason: Hypoglycemia Insulin Human Lispro (Humalog) 0 units SC .MILD SLIDING SCALE PRN PRN Reason: Mild Correctional Scale Ipratropium [place] (Atrovent) 2.5 ml NEB QID-RT [facility] Last Admin: 07/11/18 13:32 Dose: 2.5 ml Mometasone Furoate/Formoterol Fumar (Dulera 100 Mcg/5 Mcg Inhaler) 2 puff INH BID-RT [facility] Last Admin: 07/11/18 06:39 Dose: 2 puff Morphine Sulfate (Morphine) 2 mg SLOW IVP Q4H PRN PRN Reason: Pain Last Admin: 07/11/18 03:02 Dose: 2 mg Ondansetron HCl (Zofran) 4 mg IVP Q6H PRN PRN Reason: Nausea/Vomiting Last Admin: 07/10/18 15:29 Dose: 4 mg Sodium Chloride (Flush - Normal Saline) 10 ml IVF Q12HR [facility] Last Admin: 07/11/18 08:22 Dose: 10 ml Sodium Chloride (Flush - Normal Saline) 10 ml IVF PRN PRN PRN Reason: Saline Flush
[2018-07-12] MEDS: Sodium Chloride 0.9% 1,000 ML IV SCH ×2 (01:33→14:41)
[2018-07-12 05:06] LABS: #Eosinphils 0.1 thou/uL (0.0-0.7); #Lymphocytes 1.3 thou/uL (1.20-3.40); #Monocytes 0.8 thou/uL (0.11-0.59); #Neutrophils 5.3 thou/uL (1.40-6.50); %Basophils 0.2 % (0.0-1.0); %Eosinophils 1.7 % (0.0-10.0); %Lymphocytes 16.8 % (21.0-51.0); %Monocytes 10.5 % (0.0-10.0); %Neutrophils 70.9 % (42.0-75.0); Hemoglobin 11.6 g/dL (14.0-18.0); Mean Corpuscular HGB CONC 32.3 g/dL (32.0-36.0); Mean Corpuscular Hemoglobin 29.3 pg (27.0-31.0); Mean Corpuscular Volume 90.6 fL (78.0-98.0); Platelet Count 292 thou/uL (130-400); RBC Distribution Width 13.4 % (11.5-14.5); Red Blood Cell (RBC) Count 3.95 mill/uL (4.70-6.10); White Blood Cell (WBC) Count 7.4 thou/uL (4.8-10.8)
[2018-07-12 05:21] LABS: Anion Gap 11 mmol/L (10-20); BUN (Urea Nitrogen) 5 mg/dL (8.4-25.7); Calc. Creatinine Clearance 125 mL/min (70-130); Calcium 8.3 mg/dL (7.8-10.44); Carbon Dioxide 24 mmol/L (23-31); Chloride 106 mmol/L (98-107); Estimated GFR-MDRD 88; Glucose 116 mg/dL (83-110); Potassium 3.4 mmol/L (3.5-5.1); Sodium 138 mmol/L (136-145)
[2018-07-12] MEDS: Mometasone/Formoterol 120 PUFF INHALER INH SCH ×2 (06:51→19:32)
[2018-07-12] MEDS: Ipratropium Bromide 2.5 ml Neb NEB SCH ×4 (06:52→19:24)
[2018-07-12] MEDS ORDERED: Thrombin 5000 UNITS/5 ML VIAL ONE (08:02)
[2018-07-12] MEDS: Enoxaparin Sodium 30 MG/0.3 ML SYRINGE SC SCH (09:30)
[2018-07-12] MEDS: Enoxaparin Sodium 100 MG/ML SYRINGE SC SCH (09:31)
[2018-07-12] MEDS: Famotidine/PF 20 mg/2ml Vial SLOW IVP SCH (09:31)
[2018-07-12] MEDS: Dronedarone HCl 400 MG TAB PO SCH ×2 (09:31→16:37)
--- NOTE | 2018-07-12 10:32 | PRG ---
DATE OF SERVICE: 07/12/2018 SUBJECTIVE: The patient is feeling much better. He is tolerating liquids well. No nausea or vomiti ng. Bowels are functioning well. PHYSICAL EXAMINATION: VITAL SIGNS: Temperature 98.2, pulse 65, blood pressure 154/72. GENERAL: He looks good. ABDOMEN: Soft, nondistended. It is obese. No tenderness. ASSESSMENT: Small-bowel obstruction, resolved. PLAN: Advance diet. Discharge when okay with Medicine. Follow up with primary care physician. He will need to see GI for a colonoscopy in the future.
--- NOTE | 2018-07-12 14:27 | PDOC.PN ---
- Subjective Encounter Start Date: 07/12/18 Encounter Start Time: 14:25 Pt seen for followup re: campylobacter enteritis. Reports diarrhea, no other complaints. - Objective Resuscitation Status: Resuscitation Status FULL:Full Resuscitation Vital Signs & Weight: Vital Signs (12 hours) Temp Pulse Resp BP Pulse Ox 07/12/18 13:54 79 18 98 07/12/18 12:00 98.2 F 71 18 180/76 H 94 L 07/12/18 10:16 72 16 95 07/12/18 08:00 92 L 07/12/18 07:42 98.2 F 65 20 154/72 H 92 L 07/12/18 06:54 92 L 07/12/18 06:52 65 16 92 L 07/12/18 06:51 65 16 92 L Weight Admit Weight 283 lb 1.176 oz Weight 283 lb 1.176 oz I&O: 07/11/18 07/12/18 07/13/18 06:59 06:59 06:59 Intake Total 1200 2880 Output Total 50 Balance 1150 2880 Result Diagrams: 07/12/18 04:27 07/12/18 04:27 Additional Labs: Accuchecks 07/12/18 07/12/18 07/12/18 12:12 07:28 04:23 POC Glucose 94 122 H 116 H 07/12/18 07/11/18 07/11/18 00:13 19:45 16:19 POC Glucose 99 127 H 128 H Phys Exam - Physical Examination Obese HEENT: moist MMs Neck: supple Respiratory: clear to auscultation bilateral Cardiovascular: RRR Gastrointestinal: soft, non-tender, positive bowel sounds Neurological: moves all 4 limbs Psychiatric: normal affect Dx/Plan (1) Campylobacter enteritis Code(s): A04.5 - CAMPYLOBACTER ENTERITIS Status: Acute Comment: start azithromycin 500 mg PO daily x 3 days. Home later today or tomorrow if diarrhea resolves. (2) Chronic a-fib Code(s): I48.2 - CHRONIC ATRIAL FIBRILLATION Status: Chronic Comment: stop Lovenox, resume rivaroxaban (3) DM2 (diabetes mellitus, type 2) Status: Chronic Comment: controlled (4) SBO (small bowel obstruction) Code(s): K56.609 - UNSP INTESTNL OBST, UNSP TO PARTIAL VERSUS COMPLETE OBST Status: Resolved - Plan * . Review of Systems - Review of Systems Respiratory: negative: Cough, Shortness of Breath, SOB with Excertion, Pleuritic Pain, Wheezing Cardiovascular: negative: chest pain, palpitations, orthopnea, paroxysmal nocturnal dyspnea, edema, light headedness Gastrointestinal: Diarrhea. negative: Nausea, Vomiting, Abdominal Pain, Constipation, Melena, Hematochezia - Medications/Allergies Allergies/Adverse Reactions: Allergies Allergy/AdvReac Type Severity Reaction Status Date / Time No Allergy Information Allergy Verified 07/09/18 05:56 Available Medications: Current Medications Azithromycin (Zithromax) 500 mg PO DAILY [facility] Stop: 07/14/18 09:01 Dextrose/Water (Dextrose 50%) 25 gm SLOW IVP PRN PRN PRN Reason: Hypoglycemia Dronedarone (Multaq) 400 mg PO BID-WM [facility] Last Admin: 07/12/18 09:31 Dose: 400 mg Enoxaparin Sodium (Lovenox) 100 mg SC 0900,2100 [facility] Last Admin: 07/12/18 09:31 Dose: 100 mg Enoxaparin Sodium (Lovenox) 30 mg SC 0900,2100 [facility] Last Admin: 07/12/18 09:30 Dose: 30 mg Famotidine (Pepcid) 20 mg SLOW IVP Q12HR [facility] Last Admin: 07/12/18 09:31 Dose: 20 mg Glucagon (Glucagon) 1 mg IM PRN PRN PRN Reason: Hypoglycemia Sodium Chloride (Normal Saline 0.9%) 1,000 mls @ 100 mls/hr IV .Q10H [facility] Last Admin: 07/12/18 01:33 Dose: 1,000 mls Dextrose/Water (D5w) 1,000 mls @ 0 mls/hr IV .Q0M PRN PRN Reason: Hypoglycemia Insulin Human Lispro (Humalog) 0 units SC .MILD SLIDING SCALE PRN PRN Reason: Mild Correctional Scale Ipratropium [place] (Atrovent) 2.5 ml NEB QID-RT [facility] Last Admin: 07/12/18 13:54 Dose: 2.5 ml Mometasone Furoate/Formoterol Fumar (Dulera 100 Mcg/5 Mcg Inhaler) 2 puff INH BID-RT [facility] Last Admin: 07/12/18 06:51 Dose: 2 puff Morphine Sulfate (Morphine) 2 mg SLOW IVP Q4H PRN PRN Reason: Pain Last Admin: 07/11/18 21:07 Dose: 2 mg Sodium Chloride (Flush - Normal Saline) 10 ml IVF Q12HR [facility] Last Admin: 07/12/18 09:31 Dose: 10 ml Sodium Chloride (Flush - Normal Saline) 10 ml IVF PRN PRN PRN Reason: Saline Flush
[2018-07-12] MEDS: Azithromycin 250 MG TAB PO SCH (14:41)
[2018-07-12] MEDS: Apixaban 5 MG TAB PO SCH (20:33)
[2018-07-12] MEDS: Famotidine 20 MG TAB PO SCH (20:33)
[2018-07-13] MEDS: Sodium Chloride 0.9% 1,000 ML IV SCH ×2 (00:50→12:42)
[2018-07-13] MEDS: Ipratropium Bromide 2.5 ml Neb NEB SCH ×2 (06:15→10:12)
[2018-07-13] MEDS: Mometasone/Formoterol 120 PUFF INHALER INH SCH (06:18)
[2018-07-13] MEDS ORDERED: Meperidine HCl/PF 25 MG/ML VIAL ONE (08:02)
[2018-07-13] MEDS: Apixaban 5 MG TAB PO SCH (09:12)
[2018-07-13] MEDS: Famotidine 20 MG TAB PO SCH (09:12)
[2018-07-13] MEDS: Dronedarone HCl 400 MG TAB PO SCH (09:12)
[2018-07-13 11:35] VITALS: BP 163/78; TEMP 97.8
[2018-07-13] MEDS: Azithromycin 250 MG TAB PO SCH (12:55)
--- NOTE | 2018-07-14 15:10 | DIS ---
PRIMARY CARE PHYSICIAN: Dr. Vel Horne. DATE OF ADMISSION: 07/09/2018 DATE OF DISCHARGE: 07/13/2018 DISCHARGE DISPOSITION: Home. PRIMARY DISCHARGE DIAGNOSES: 1. Small-bowel obstruction, resolved. 2. Chronic respiratory failure secondary to chronic obstructive pulmonary disease. 3. Atrial fibrillation. 4. Obstructive sleep apnea. 5. Diabetes mellitus. 6. History of cardiac ablation. DISCHARGE MEDICATIONS: Include Zithromax 250 mg daily for 3 days, Benicar 40 mg daily, metformin 500 mg twice a daily, magnesium oxide 400 mg twice daily, glyburide 1.25 mg daily, Lasix 20 mg daily, fl uticasone/vilanterol one puff intranasally daily, Multaq 400 mg twice daily and Eliquis 5 mg twice a day. PROCEDURES DONE DURING ADMISSION: The patient had a CT scan of the abdomen and pelvis. This was don e on 07/09/2018 demonstrating postoperative changes of a previous ventral hernia repair. There is a group of mildly dilated mid ileal small bowel loops with a transition to more normal caliber loops, b oth proximal and distal to this which could represent a partial small-bowel obstruction. The patient had a small bowel x-ray on 07/10/2018 showing a partial small-bowel obstruction with some dilatation of some of the mid small bowel loops with rapid progression of the oral contrast to the entire small bowel into the colon after 1 hour. CODE STATUS: FULL CODE. ALLERGIES: No known drug allergies. HOSPITAL COURSE: Mr. Mariscal is an 83-year-old gentleman who was admitted to the hospital after he was having severe abdominal pain accompanied by nausea and vomiting; however, no hematemesis. He was ev aluated in the emergency room and found to have findings consistent with a partial small-bowel obstru ction. He was admitted and evaluated by both Gastroenterology as well as General Surgery. He was tr eated conservatively with bowel rest and NG tube suctioning. The partial bowel obstruction resolved spontaneously. It is recommended that he have a colonoscopy as an outpatient once this acute illness has resolved. He was also seen by Cardiology with regards to the atrial fibrillation. He was to ba sically continue his regular medications once the small-bowel obstruction had resolved. At the time of discharge, the patient was tolerating a solid diet and was subsequently discharged home and to [facility] close followup with his primary care physician in 1-2 weeks.
== END 2018-07-13 13:15 | disposition home or self-care (01) | DRG 372 ==
LOC: SCSER 01:23 → T4-A 04:19
PROVIDERS: ADMIT Internal Medicine; ATTEND Internal Medicine
DX: A04.5 Campylobacter enteritis (principal); N17.9 Acute kidney failure, unspecified; J96.10 Chronic respiratory failure, unspecified whether with hypoxia or hypercapnia; J44.9 Chronic obstructive pulmonary disease, unspecified; I48.2 Chronic atrial fibrillation; E11.9 Type 2 diabetes mellitus without complications; I25.10 Atherosclerotic heart disease of native coronary artery without angina pectoris; E66.01 Morbid (severe) obesity due to excess calories; I50.9 Heart failure, unspecified; K57.90 Diverticulosis of intestine, part unspecified, without perforation or abscess without bleeding; Z88.8 Allergy status to other drugs, medicaments and biological substances; G47.33 Obstructive sleep apnea (adult) (pediatric); Z95.5 Presence of coronary angioplasty implant and graft; Z68.38 Body mass index [BMI] 38.0-38.9, adult; Z79.84 Long term (current) use of oral hypoglycemic drugs; Z79.01 Long term (current) use of anticoagulants
CPT/HCPCS: 36415; 36416; 71045; 74018; 74177; 74250; 80048; 80053; 82550; 82553; 82570; 83690; 84484; 84540; 85025; 87045; 87046; 87324; 87449; 87899; 93005; 94640; 96361; 96374; J1650; J2175; J2270; J2405; J7644; S0028

== ENCOUNTER 2019-02-06 04:06 | Inpatient (IN) | payer MEDICARE ==
[2019-02-06] MEDS ORDERED: Ondansetron PF 4 MG/2 ML Vial ONE (04:30)
[2019-02-06] MEDS ORDERED: Morphine 4 MG/ML VIAL ONE ×2 (04:30→11:39)
[2019-02-06 04:46] LABS: #Basophils 0.1 thou/uL (0.0-0.2); #Eosinphils 0.1 thou/uL (0.0-0.7); #Lymphocytes 1.5 thou/uL (1.20-3.40); #Monocytes 0.9 thou/uL (0.11-0.59); #Neutrophils 8.9 thou/uL (1.40-6.50); %Basophils 0.6 % (0.0-1.0); %Eosinophils 1.1 % (0.0-10.0); %Lymphocytes 13.4 % (21.0-51.0); %Monocytes 7.4 % (0.0-10.0); %Neutrophils 77.3 % (42.0-75.0); Hemoglobin 12.9 g/dL (14.0-18.0); Mean Corpuscular HGB CONC 34.7 g/dL (32.0-36.0); Mean Corpuscular Hemoglobin 32.1 pg (27.0-31.0); Mean Corpuscular Volume 92.4 fL (78.0-98.0); Mean Platelet Volume 6.4 fL (7.4-10.4); Platelet Count 292 thou/uL (130-400); RBC Distribution Width 12.6 % (11.5-14.5); Red Blood Cell (RBC) Count 4.01 mill/uL (4.70-6.10); White Blood Cell (WBC) Count 11.5 thou/uL (4.8-10.8)
[2019-02-06 05:00] LABS: ALT (SGPT) 19 U/L (8-55); AST (SGOT) 14 U/L (5-34); Albumin 4.2 g/dL (3.4-4.8); Alkaline Phosphatase 46 U/L (40-150); Anion Gap 17 mmol/L (10-20); BUN (Urea Nitrogen) 19 mg/dL (8.4-25.7); Bilirubin, Total 0.4 mg/dL (0.2-1.2); Calc. Creatinine Clearance 0 mL/min (70-130); Calcium 9.7 mg/dL (7.8-10.44); Carbon Dioxide 24 mmol/L (23-31); Chloride 102 mmol/L (98-107); Estimated GFR-MDRD 48; Globulin 3.2 g/dL (2.4-3.5); Glucose 166 mg/dL (83-110); Lipase 35 U/L (8-78); Potassium 4.4 mmol/L (3.5-5.1); Protein, Total 7.4 g/dL (5.8-8.1); Sodium 139 mmol/L (136-145)
[2019-02-06 07:21] LABS: Bilirubin Negative (Negative); Blood, Urine Negative (Negative); Clarity Clear (Clear); Glucose, Urine (Dipstick) Negative (Negative); Leukocyte Negative (Negative); Nitrite Negative (Negative); Protein, Urine (Dipstick) Negative (Neg-Trace); Urobilinogen 0.2 mg/dL (0.2-1.0)
[2019-02-06] MEDS ORDERED: Benzocaine 20% Spray 60 ML CAN ONE (08:25)
--- NOTE | 2019-02-06 08:31 | CT ---
CT ABDOMEN AND PELVIS WITH IV CONTRAST: Date: 02/06/19 INDICATION: History of abdominal pain and vomiting. COMPARISON: Prior CT of the abdomen and pelvis dated 07/09/18. FINDINGS: There is mild left basilar atelectasis. There is stable fatty infiltration of the liver. The gallbladder, pancreas, adrenal glands, and spleen appear within normal limits. The kidneys are no rmal appearing. There are severe vascular calcifications involving the abdominopelvic vasculature. There are fluid-filled dilated loops of small bowel within the central abdomen with a transition zone seen anteriorly within the abdominal cavity, right of midline, near the right aspect of the anterior abdominal wall hernia mesh, and on image 70 of series 2. There are scattered diverticula involving t he colon. No free fluid is evident. Bladder, rectum, and perirectal soft tissues are unremarkable maría earing. No acute osseous abnormality is evident. There is scattered degenerative and osteoarthritic change. IMPRESSION: 1. Findings suspicious for a mild partial small bowel obstruction with a transition zone seen right of midline within the anterior abdomen adjacent to the anterior abdominal wall hernia mesh. 2. Fatty liver. 3. Colonic diverticulosis. 4. Other findings as above. POS: BH
--- NOTE | 2019-02-06 08:36 | RAD ---
XR Abdomen 1 View/KUB History: [NG tube placement] Comparison: CT abdomen and pelvis same day Findings: No enteric tube is appreciated on this examination. Surgical clips along the bilateral lowe r hemiabdomen. Prior ventral hernia repair. There is contrast within the urinary bladder. No dilated loops of large or small bowel. No acute osse ous abnormality. Impression: No enteric tube is appreciated on this exam.
--- NOTE | 2019-02-06 10:32 | RAD ---
XR Chest 1 View Portable History: [NG tube placement] Comparison: None. Findings: Enteric tube is in place tip poorly seen and may rest at the level of the T8 vertebra. This does not definitively extend below the hemidiaphragm. Suture right upper lobe. Heart size is enlarged. Mild pulmonary venous congestion. Impression: Enteric tube tip likely at the level of the T8 vertebral body. Retraction and advancement is recommended..
--- NOTE | 2019-02-06 11:58 | RAD ---
1 VIEW CHEST 2 VIEWS ABDOMEN: Date: 02/06/19 COMPARISON: 02/06/19. HISTORY: NG tube placement. FINDINGS: CHEST 1 VIEW: Stable changes to the lung parenchyma. Stable suture chain in the right suprahilar region. Stable car diomegaly and atherosclerosis. Chronic change in lung parenchyma noted. Nasogastric tube is demonstrated. Distal tip extends beyond the diaphragm and terminates in the stoma ch. 2 VIEWS ABDOMEN: Hyperdensity in urinary bladder. Bowel gas pattern redemonstrates air-filled loops of small bowel, pr edominantly in the left hemiabdomen. Nonspecific air fluid level in the right upper quadrant. No evid ence of pneumoperitoneum. IMPRESSION: 1. Dilated loops of small bowel in left hemiabdomen. 2. Atherosclerosis. 3. Nasogastric tube with distal tip terminating in epigastric region, likely in the distal stomach. POS: KIRSTIE
[2019-02-06] MEDS ORDERED: Ondansetron ODT 4 MG TAB SL PRN (12:57)
[2019-02-06] MEDS ORDERED: Ondansetron PF 4 MG/2 ML Vial IVP PRN (12:57)
[2019-02-06] MEDS ORDERED: Dextrose 5 % And 0.9 % NaCl 1,000 ML IV SCH (13:00)
[2019-02-06] MEDS ORDERED: HumaLOG 300 UNITS/3 ML VIAL SC PRN (13:37)
[2019-02-06] MEDS ORDERED: Dextrose 5% in Water 1,000 ML IV PRN (13:37)
[2019-02-06] MEDS ORDERED: Dextrose 50% Abboject 50 ML SYRINGE SLOW IVP PRN (13:37)
[2019-02-06] MEDS: Lactated Ringer's 1,000 ML IV SCH (14:14)
[2019-02-06] MEDS: Acetaminophen 1,000 MG in Premix Bag 1 BAG IVPB SCH ×2 (14:46→20:17)
[2019-02-06] MEDS ORDERED: Enoxaparin Sodium 40 MG/0.4 ML SYRINGE SC SCH (21:00)
--- NOTE | 2019-02-06 21:47 | HP ---
HISTORY OF PRESENT ILLNESS: Karlo Mariscal is an 83-year-old male who suffered the acute onset at 0500 hours this morning of abdominal distention, pain, nausea, and vomiting. He presented to the emergency room. CAT scan obtained revealed changes consistent with bowel obstruction with a transition zone. NG tube placed and verified radiologically. The patient is transferred for hydration and medical treatment. The patient was treated in 2017 for similar episode. At that point, he was seen by Dr. Ni, his waitress and noted was history of an echocardiogram that year 2017 that was normal. On 05/01/2018, the EF 55-60%, moderate left atrial enlargement with no or AI noted. History of atrial fibrillation status post ablation on Eliquis. Past history of coronary stent 3-[address] Gonsales at [facility], cardiac care assumed by Dr. Ni. PAST MEDICAL HISTORY: Includes diabetes mellitus type 2 on oral hyperglycemic, hypertension, coronary artery disease with coronary artery stent placement. He had a cardiac stress test 2-3 years ago chemical that was negative. Recent visit with Dr. Ni, EKG and evaluation, no change, asymptomatic from cardiac standpoint. PAST SURGICAL HISTORY: Umbilical hernia repair followed by recurrent hernia with repeat mesh repair, umbilical area, periumbilical incision in the . No evidence of recurrent hernia since that time. ORIF ankle. No prior colonoscopy. REVIEW OF SYSTEMS: Ten-point noncontributory. SOCIAL HISTORY: The patient is retired. FAMILY HISTORY: Noncontributory. PHYSICAL EXAMINATION: GENERAL: Morbidly obese. VITAL SIGNS: Blood pressure 152/72, pulse 74, respirations 20, weight 136 kg. HEENT: Unremarkable. LUNGS: Clear to auscultation. No wheezing. CARDIAC: Regular rate and rhythm without murmur or gallop. ABDOMEN: Soft, obese, protuberant, slightly tympanitic, nontender. No peritoneal signs. EXTREMITIES: Unremarkable. LABORATORY DATA: White count 11, hemoglobin 12.9. Basic metabolic profile normal with creatinine is 1.41, which is chronically intermittently elevated by computer result. CAT scan as noted results, oral and IV contrast used. Abdominal x-rays confirmed proper NG tube placement. ASSESSMENT/PLAN: 1. Recurrent small bowel obstruction. He has had no intervening symptoms since July last year. Plan would be to continue his nasogastric tube suction. Repeat abdominal x-rays and small-bowel follow-through tomorrow. Further recommendations pending clinical course. 2. Diabetes mellitus. We will continue sliding scale insulin coverage and monitoring his Accu-Cheks. 3. Hypertension. 4. Sleep apnea. Consult Respiratory for CPAP guidance and use this hospitalization. 5. On Eliquis, hold his Eliquis. 6. History of coronary artery disease on anticoagulation chronically, followed by Dr. Ni with history of atrial fibrillation with history of ablation. Job ID: [id number]
[2019-02-06 21:50] VITALS: BMI 40.6
[2019-02-07] MEDS: Lactated Ringer's 1,000 ML IV SCH ×3 (00:14→08:04)
[2019-02-07] MEDS: Acetaminophen 1,000 MG in Premix Bag 1 BAG IVPB SCH ×2 (02:08→08:12)
[2019-02-07] MEDS ORDERED: Pantoprazole 40 MG VIAL IVP SCH (09:00)
--- NOTE | 2019-02-07 10:32 | RAD ---
Exam: Abdomen 2 views: HISTORY: Small bowel obstruction COMPARISON: 02/06/2019 FINDINGS: An NG tube is in place. There is some oral contrast in the colon from the previous CT scan. Numerous postsurgical changes are noted in the mid abdomen. No evidence for free intraperitoneal air. No overt abnormally dilated bowel loops demonstrated. Patient is scheduled for a small bowel series to sherman tang this study. IMPRESSION: No evidence of overt abnormal dilated small bowel on this study.
--- NOTE | 2019-02-07 11:50 | RAD ---
Small bowel series with Gastrografin: HISTORY: Small bowel obstruction evaluation: COMPARISON: Abdomen 2 views, 02/07/2019 FINDINGS: Patient was given Gastrografin through the NG tube. 15 minute and 1 hour overhead films were performe d. There is rapid passage of contrast through nondilated nonobstructing small bowel. Contrast is definitely entering the colon by 1 hour. IMPRESSION: Rapid transit of contrast through nondilated nonobstructing small bowel entering the colon by 1 hour.
[2019-02-07 12:20] VITALS: TEMP 97.6
[2019-02-07] MEDS ORDERED: PROVENTIL INHALER 6.7 G (200 INHALATIONS) INH PRN ×2 (15:33→16:00)
[2019-02-07] MEDS ORDERED: Carvedilol 6.25 MG TAB PO SCH (16:30)
[2019-02-07] MEDS ORDERED: metFORMIN 500 MG TAB PO SCH (17:00)
[2019-02-07] MEDS ORDERED: Dronedarone HCl 400 MG TAB PO SCH (17:00)
[2019-02-07 17:26] VITALS: BP 131/78
[2019-02-07] MEDS ORDERED: Magnesium Oxide 400 MG TAB PO SCH (21:00)
[2019-02-08] MEDS ORDERED: Rosuvastatin 20 MG TAB PO SCH (07:30)
[2019-02-08] MEDS ORDERED: Torsemide 20 MG TAB PO SCH (09:00)
[2019-02-08] MEDS ORDERED: Non-Formulary Item 1 EACH (Fluticasone/Umeclidin/Vilanter [Trelegy Ellipta 100-62.5-25] 1 ALT NARE SCH (09:00)
--- NOTE | 2019-02-08 11:33 | DIS ---
DATE OF ADMISSION: 02/06/2019 DATE OF DISCHARGE: 02/07/2019 HISTORY OF PRESENT ILLNESS: Karlo Mariscal is an 83-year-old male patient, seen in the emergency room yesterday evening for complaints of abdominal pain, nausea, vomiting, and distention. CAT scan revealed changes consistent with bowel obstruction with a transition zone. NG tube placed, verified radiologically and had output out overnight. He was treated with intravenous fluids, NG tube to suction. Today, he underwent a small-bowel follow-through that was normal. He tolerated his diet. He has been discharged home at this time and will follow up in my office as needed. The patient has been followed by Dr. Ni, has a history echocardiogram in 2018. It was normal. History of atrial fibrillation, status post ablation, has been on Eliquis. He had a coronary artery stent placed 3 to [address] Bhardwaj at [facility]. The patient has an umbilical hernia repair in the past in the 90s, suffered recurrence, undergoing repeat repair with mesh. Otherwise, no other abdominal operations. No history of colonoscopy. HOSPITAL COURSE: The patient admitted, NG tube and with small bowel follow-through, have multiple bowel movements. No evidence of obstruction. He is discharged home to resume his home medications. Job ID: [id number]
== END 2019-02-07 17:48 | disposition home or self-care (01) | DRG 389 ==
LOC: SCSER 04:06 → SCSEROBS 08:35 → SURG A 12:37
PROVIDERS: ADMIT Specialist; ATTEND Specialist
DX: K56.609 Unspecified intestinal obstruction, unspecified as to partial versus complete obstruction (principal); Z68.41 Body mass index [BMI] 40.0-44.9, adult; I10 Essential (primary) hypertension; I25.10 Atherosclerotic heart disease of native coronary artery without angina pectoris; G47.00 Insomnia, unspecified; I48.91 Unspecified atrial fibrillation; E11.9 Type 2 diabetes mellitus without complications; E66.01 Morbid (severe) obesity due to excess calories; Z95.5 Presence of coronary angioplasty implant and graft; Z98.890 Other specified postprocedural states; Z79.01 Long term (current) use of anticoagulants
CPT/HCPCS: 36416; 71045; 74018; 74019; 74022; 74176; 74250; 80053; 81003; 83690; 85025; 96361; 96374; 96375; 96376; C9113; J0131; J1650; J2270; J2405

== ENCOUNTER 2020-05-23 06:17 | Outpatient (CLI) | payer MEDICARE, OTHER ==
[2020-05-23 14:02] LABS: #Eosinphils 0.1 thou/uL (0.0-0.7); #Lymphocytes 2.4 thou/uL (1.20-3.40); #Monocytes 0.8 thou/uL (0.11-0.59); #Neutrophils 5.7 thou/uL (1.40-6.50); %Basophils 0.3 % (0.0-1.0); %Eosinophils 1.4 % (0.0-10.0); %Lymphocytes 26.5 % (21.0-51.0); %Monocytes 8.8 % (0.0-10.0); %Neutrophils 63.1 % (42.0-75.0); Hemoglobin 13.4 g/dL (14.0-18.0); Mean Corpuscular HGB CONC 32.8 g/dL (32.0-36.0); Mean Corpuscular Hemoglobin 32.3 pg (27.0-31.0); Mean Corpuscular Volume 98.5 fL (78.0-98.0); Mean Platelet Volume 8.1 fL (7.4-10.4); Platelet Count 313 thou/uL (130-400); RBC Distribution Width 12.4 % (11.5-14.5); Red Blood Cell (RBC) Count 4.14 mill/uL (4.70-6.10); White Blood Cell (WBC) Count 9.1 thou/uL (4.8-10.8)
[2020-05-23 14:43] LABS: ALT (SGPT) 19 U/L (8-55); AST (SGOT) 16 U/L (5-34); Albumin 4.3 g/dL (3.4-4.8); Alkaline Phosphatase 45 U/L (40-110); Anion Gap 17 mmol/L (10-20); BUN (Urea Nitrogen) 18 mg/dL (8.4-25.7); Bilirubin, Total 0.5 mg/dL (0.2-1.2); Calc. Creatinine Clearance 0 mL/min (70-130); Calcium 9.2 mg/dL (7.8-10.44); Carbon Dioxide 24 mmol/L (23-31); Chloride 102 mmol/L (98-107); Estimated GFR-MDRD 64; Globulin 2.7 g/dL (2.4-3.5); Glucose 98 mg/dL (83-110); Potassium 4.8 mmol/L (3.5-5.1); Sodium 138 mmol/L (136-145)
[2020-05-24 14:48] LABS: SARS-CoV-2 MS2 Positive; SARS-CoV-2 N Gene Negative; SARS-CoV-2 S Gene Negative; SARS-CoV-2 by NAA Not Detected (NotDetected); SARS-CoV-2 orf1ab Negative
== END 2020-05-23 06:18 | disposition home or self-care (01) ==
LOC: LABBT 06:17
PROVIDERS: ATTEND Internal Medicine Cardiovascular Disease
DX: Z01.812 Encounter for preprocedural laboratory examination (principal); Z20.828 Contact with and (suspected) exposure to other viral communicable diseases; I25.10 Atherosclerotic heart disease of native coronary artery without angina pectoris; R06.00 Dyspnea, unspecified
CPT/HCPCS: 80053; 85025; U0003; 87635

== ENCOUNTER 2020-05-28 06:33 | Observation (INO) | payer MEDICARE ==
[2020-05-28] MEDS ORDERED: Lidocaine 1% (PF) 30 ML VIAL ONE (08:23)
[2020-05-28] MEDS ORDERED: Midazolam HCl 2 mg/2 ml Vial ONE ×3 (09:04→13:03)
[2020-05-28] MEDS ORDERED: Fentanyl 100 MCG/2 ML VIAL ONE ×2 (09:04→12:56)
[2020-05-28] MEDS ORDERED: Iopamidol 370 76% 100 ML VIAL ONE (09:11)
[2020-05-28] MEDS ORDERED: Verapamil 5 MG/2 ML VIAL ONE (10:10)
[2020-05-28] MEDS ORDERED: Heparin 10,000 UNITS/ 10 ML VIAL ONE ×2 (10:10→10:42)
[2020-05-28] MEDS ORDERED: Nitroglycerin 100MG/250ML BOT 250 ML ONE (10:10)
[2020-05-28] MEDS ORDERED: hydrALAZINE 20 MG/ML VIAL ONE (10:40)
[2020-05-28] MEDS ORDERED: TICAGRELOR 90 MG TABLET ONE (11:07)
[2020-05-28] MEDS ORDERED: Aspirin Chewable 81 MG TAB ONE (12:02)
[2020-05-28] MEDS ORDERED: Ondansetron PF 4 MG/2 ML Vial ONE (12:55)
[2020-05-28] MEDS ORDERED: Atropine Sulfate 1 mg/10 ml Syringe ONE (12:56)
[2020-05-28] MEDS ORDERED: Ketamine 50 MG/ML (10ML VIAL) ONE (13:03)
[2020-05-28] MEDS ORDERED: Ondansetron PF 4 MG/2 ML Vial IVP PRN (14:17)
[2020-05-28] MEDS ORDERED: Dextrose 50% Abboject 50 ML SYRINGE SLOW IVP PRN (14:17)
[2020-05-28] MEDS ORDERED: HumaLOG 300 UNITS/3 ML VIAL SC PRN (14:17)
[2020-05-28] MEDS ORDERED: Dextrose 5% in Water 1,000 ML IV PRN (14:17)
[2020-05-28] MEDS ORDERED: Acetaminophen 325 MG TAB PO PRN (14:17)
[2020-05-28] MEDS ORDERED: traMADol HCl 50 MG TAB PO PRN ×2 (14:17)
[2020-05-28] MEDS ORDERED: Fentanyl 100 MCG/2 ML VIAL SLOW IVP PRN ×2 (14:17)
[2020-05-28] MEDS ORDERED: Rocuronium Bromide 10 MG/ML (10ML VIAL) ONE (14:41)
[2020-05-28] MEDS ORDERED: Succinylcholine Chloride 20 MG/ML 10 ml SYRINGE FS ONE (14:41)
[2020-05-28] MEDS ORDERED: Esmolol 100 MG/10 ML VIAL ONE (14:41)
[2020-05-28] MEDS ORDERED: Glycopyrrolate 0.2 MG/ML 5 ML SYRINGE ONE (14:41)
[2020-05-28] MEDS ORDERED: EPHEDRINE 25 MG/5 ML SYRINGE ONE (14:41)
[2020-05-28] MEDS ORDERED: CEFAZOLIN 2 GM in Premix Bag 1 BAG IVPB SCH (15:00)
[2020-05-28 17:09] VITALS: BMI 39.9
[2020-05-28] MEDS: Carvedilol 3.125 MG TAB PO SCH (17:20)
[2020-05-28] MEDS: Dronedarone HCl 400 MG TAB PO SCH (17:20)
--- NOTE | 2020-05-28 18:11 | CON ---
DATE OF CONSULTATION: 05/28/2020 HISTORY OF PRESENT ILLNESS: Mr. Mariscal is an gentleman, who underwent cardiac catheterization today with stenting of his LAD. He was given Brilinta in the clinical laboratory service teacher. I had a very difficult time obtaining femoral artery access - the patient actually had a first attempt at right femoral access, which was unsuccessful and eventually, they were able to access his femoral area on the left. In the recovery area, apparently, he had some bleeding around the sheath and the sheath worked its way out and he has bled into his groin and has a significant deidre-stick hematoma/pseudoaneurysm. I was called urgently to see him for repair. PAST MEDICAL HISTORY: 1. Coronary artery disease. 2. Diabetes mellitus. 3. Hypertension. 4. Dyslipidemia. 5. Morbid obesity. PAST SURGICAL HISTORY: 1. Umbilical hernia repair. 2. Mesh repair of the hernia. 3. Periumbilical hernia repair in the . 4. ORIF of his ankle. SOCIAL HISTORY: He is retired. He is and accompanied by his and children. PHYSICAL EXAMINATION: GENERAL: On my arrival, the patient is in obvious discomfort. VITAL SIGNS: His heart rate was 100. Blood pressure was 80/60. This returned at 132/76 after a fluid bolus. Manual pressure was being held on his left groin. Due to the history, we did not elect to perform ultrasound or other diagnostic procedures and we are taking him directly to the operating room for emergency left femoral artery repair. Job ID: [id number]
--- NOTE | 2020-05-28 18:54 | OP ---
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 PROCEDURE PERFORMED: Primary repair of left external iliac artery pseudoaneurysm. PATCHER HELPER: Dr. Dior. ANESTHESIA: General endotracheal. ESTIMATED BLOOD LOSS: 200. DRAIN: 19-Sammarinese Johnson drain. DESCRIPTION OF PROCEDURE: The patient was emergently brought to the operating room and placed in supine position on the operating table. Manual pressure was held on the groin during transport and during prep. After the groin was prepped and draped in usual sterile fashion, general anesthesia had been induced. We made a transverse incision just above the stick site. It was so deep to get to his femoral artery, I could not actually palpate pulse and Doppler had to be used to locate femoral artery. Once we located the femoral artery, dissection was made both with electrocautery and with sharp dissection down to the femoral artery. There was no bleeding at the femoral artery at this level. We followed the femoral artery up to the inguinal ligament. Once we got to the inguinal ligament, part of the inguinal ligament was divided and followed underneath on to the external iliac artery, where we encountered the stick site on the medial edge of the external iliac artery. There were 2 separate stick sites that were bleeding. Both of these were controlled with 4-0 Prolene sfyxhu-ua-eaior sutures. Once hemostasis had been obtained, the wound was copiously irrigated. The 19-Sammarinese Johnson drain was placed and the fascia was reapproximated with interrupted 0 Vicryl suture. The wound was then closed in layers and skin was closed with clips. The patient tolerated the procedure well and was awakened, extubated, transferred to recovery room in stable condition. Job ID: [id number]
[2020-05-28 20:02] LABS: #Lymphocytes 1.6 thou/uL (1.20-3.40); #Monocytes 1.6 thou/uL (0.11-0.59); #Neutrophils 11.2 thou/uL (1.40-6.50); %Basophils 0.1 % (0.0-1.0); %Eosinophils 0.3 % (0.0-10.0); %Lymphocytes 11.3 % (21.0-51.0); %Monocytes 10.8 % (0.0-10.0); %Neutrophils 77.5 % (42.0-75.0); Mean Corpuscular Hemoglobin 32.5 pg (27.0-31.0); Mean Corpuscular Volume 98.7 fL (78.0-98.0); Mean Platelet Volume 7.8 fL (7.4-10.4); Platelet Count 276 thou/uL (130-400); RBC Distribution Width 12.6 % (11.5-14.5); Red Blood Cell (RBC) Count 3.69 mill/uL (4.70-6.10); White Blood Cell (WBC) Count 14.5 thou/uL (4.8-10.8)
[2020-05-28] MEDS ORDERED: Doxylamine 25 MG TAB PO PRN (20:09)
[2020-05-28] MEDS: Magnesium Oxide 400 MG TAB PO SCH (20:42)
[2020-05-28] MEDS: CEFAZOLIN 2 GM in Premix Bag 1 BAG IVPB SCH (20:42)
[2020-05-28] MEDS: TICAGRELOR 90 MG TABLET PO SCH (20:42)
[2020-05-29 04:54] LABS: #Lymphocytes 1.8 thou/uL (1.20-3.40); #Monocytes 1.1 thou/uL (0.11-0.59); #Neutrophils 8.1 thou/uL (1.40-6.50); %Basophils 0.1 % (0.0-1.0); %Eosinophils 0.3 % (0.0-10.0); %Lymphocytes 15.9 % (21.0-51.0); %Monocytes 10.3 % (0.0-10.0); %Neutrophils 73.4 % (42.0-75.0); Mean Corpuscular HGB CONC 32.9 g/dL (32.0-36.0); Mean Corpuscular Hemoglobin 32.8 pg (27.0-31.0); Mean Corpuscular Volume 99.7 fL (78.0-98.0); Mean Platelet Volume 7.8 fL (7.4-10.4); Platelet Count 259 thou/uL (130-400); RBC Distribution Width 12.4 % (11.5-14.5); Red Blood Cell (RBC) Count 3.36 mill/uL (4.70-6.10); White Blood Cell (WBC) Count 11.1 thou/uL (4.8-10.8)
[2020-05-29 05:10] LABS: Anion Gap 17 mmol/L (10-20); BUN (Urea Nitrogen) 16 mg/dL (8.4-25.7); Calc. Creatinine Clearance 102 mL/min (70-130); Calcium 8.3 mg/dL (7.8-10.44); Carbon Dioxide 20 mmol/L (23-31); Chloride 105 mmol/L (98-107); Estimated GFR-MDRD 68; Glucose 142 mg/dL (83-110); Potassium 4.7 mmol/L (3.5-5.1); Sodium 137 mmol/L (136-145)
[2020-05-29] MEDS: CEFAZOLIN 2 GM in Premix Bag 1 BAG IVPB SCH ×2 (06:20→13:59)
[2020-05-29] MEDS: Mometasone 100 MCG/PUFF (1 INHALER) INH SCH ×2 (07:17→19:25)
[2020-05-29] MEDS: Allopurinol 100 MG TAB PO SCH (08:34)
[2020-05-29] MEDS: Dronedarone HCl 400 MG TAB PO SCH ×2 (08:34→16:09)
[2020-05-29] MEDS: Aspirin 81 mg Enteric Coated Tablet PO SCH (08:34)
[2020-05-29] MEDS: Carvedilol 3.125 MG TAB PO SCH ×2 (08:34→16:09)
[2020-05-29] MEDS: TICAGRELOR 90 MG TABLET PO SCH (08:34)
[2020-05-29] MEDS: Magnesium Oxide 400 MG TAB PO SCH ×2 (08:34→20:50)
[2020-05-29] MEDS: FLUoxetine HCl 20 MG CAP PO SCH (08:35)
[2020-05-29] MEDS ORDERED: Furosemide 20 MG TAB PO SCH (09:00)
[2020-05-29] MEDS ORDERED: Clopidogrel Bisulfate 300 MG TAB PO SCH (16:00)
--- NOTE | 2020-05-29 18:02 | PRG ---
DATE OF SERVICE: 05/29/2020 SUBJECTIVE: Mr. Mariscal is doing well today, feels fine. No chest pain or pressure. OBJECTIVE: VITAL SIGNS: Blood pressure 133/64, pulse 67 and regular. LUNGS: Clear. CARDIAC: Normal S1, normal S2. He has a drain in place still with some blood from the drain in the left groin. ASSESSMENT: 1. Status post successful stent implantation in the LAD. 2. Difficult groin access, developed bleeding from the left groin, requiring urgent repair done by Dr. Whitt. PLAN: 1. I have taken him off the Brilinta and changed it to Plavix. 2. Aspirin. 3. We will not give him Eliquis for now. Hopefully, he be able to be released home tomorrow. Job ID: [id number]
[2020-05-29] MEDS ORDERED: Rosuvastatin 20 MG TAB PO SCH (21:00)
[2020-05-30 04:28] LABS: #Eosinphils 0.1 thou/uL (0.0-0.7); #Lymphocytes 1.6 thou/uL (1.20-3.40); #Neutrophils 5.2 thou/uL (1.40-6.50); %Basophils 0.1 % (0.0-1.0); %Eosinophils 0.7 % (0.0-10.0); %Lymphocytes 20.4 % (21.0-51.0); %Monocytes 12.5 % (0.0-10.0); %Neutrophils 66.3 % (42.0-75.0); Hemoglobin 9.9 g/dL (14.0-18.0); Mean Corpuscular HGB CONC 32.7 g/dL (32.0-36.0); Mean Corpuscular Hemoglobin 32.5 pg (27.0-31.0); Mean Corpuscular Volume 99.5 fL (78.0-98.0); Mean Platelet Volume 7.4 fL (7.4-10.4); Platelet Count 239 thou/uL (130-400); RBC Distribution Width 12.4 % (11.5-14.5); Red Blood Cell (RBC) Count 3.06 mill/uL (4.70-6.10); White Blood Cell (WBC) Count 7.9 thou/uL (4.8-10.8)
[2020-05-30 04:53] LABS: Anion Gap 14 mmol/L (10-20); BUN (Urea Nitrogen) 15 mg/dL (8.4-25.7); Calc. Creatinine Clearance 104 mL/min (70-130); Calcium 8.2 mg/dL (7.8-10.44); Carbon Dioxide 22 mmol/L (23-31); Chloride 105 mmol/L (98-107); Estimated GFR-MDRD 73; Glucose 142 mg/dL (83-110); Potassium 4.1 mmol/L (3.5-5.1); Sodium 137 mmol/L (136-145)
[2020-05-30] MEDS: Mometasone 100 MCG/PUFF (1 INHALER) INH SCH (07:26)
[2020-05-30 07:59] VITALS: BP 144/65; TEMP 98.1
[2020-05-30] MEDS ORDERED: metFORMIN 500 MG TAB PO SCH (08:00)
[2020-05-30] MEDS: Magnesium Oxide 400 MG TAB PO SCH (08:01)
[2020-05-30] MEDS: Carvedilol 3.125 MG TAB PO SCH (08:01)
[2020-05-30] MEDS: Aspirin 81 mg Enteric Coated Tablet PO SCH (08:01)
[2020-05-30] MEDS: Allopurinol 100 MG TAB PO SCH (08:01)
[2020-05-30] MEDS: Dronedarone HCl 400 MG TAB PO SCH (08:01)
[2020-05-30] MEDS: FLUoxetine HCl 20 MG CAP PO SCH (08:01)
[2020-05-30] MEDS ORDERED: Clopidogrel Bisulfate 75 MG TAB PO SCH (09:00)
[2020-05-30] MEDS ORDERED: Furosemide 20 MG TAB PO SCH (09:00)
--- NOTE | 2020-05-31 02:45 | DIS ---
DATE OF ADMISSION: 05/28/2020 DATE OF DISCHARGE: 05/30/2020 Mr. Mariscal is doing well today. This is an 85-year-old gentleman who presented with increasing amounts of shortness of breath with low-level activity, which was his identical symptom prior to stent implantation in the circumflex distribution 4 years ago. He was brought to the cardiac catheterization lab. He was found to have the followin. Very difficult access, unable to obtain access from the right groin due to severe obesity. 2. Difficult access from the left groin. Ultimately, access was able to be obtained, but it was very difficult. 3. Left main normal. No obstruction. 4. LAD had what appeared to be angiographically about a 60% narrowing, but fractional flow reserve revealed the FFR was below 0.6. Therefore, stent implantation was done. It was a 3.0 x 16 mm drug-coated stent that was postdilated with a high-pressure 3.25 mm balloon. The patient did not have any obstruction in the circumflex stents. In the right coronary, it looks like a nonobstructive 40% to 50% proximal plaque. The patient initially did well but then developed a very large hematoma in the left groin. I came to see the patient immediately, it looked like a small additional hematoma had formed, and it had actually pushed the sheath out of the artery and he had severe hematoma with hypotension. He was given atropine and fluid, stabilized, and taken promptly to the operating room. Dr. Otf Whitt repaired the artery puncture site. The patient did well following that. A drain was left in place. We kept an x-ray in the hospital to make sure he is stable and he did very well. The bottom line is that if he needs any further catheterization, it should be done from the right wrist if at all possible. The other option, if it is unable to obtain access from the wrist, would be catheterization again from the leg, but needs a higher quality ultrasound. The ultrasound that was available to us really gave very suboptimal imaging. The patient went home on the medicines identical to what he came in with the only changes as follows: 1. Took him off Eliquis for now. He is maintaining sinus rhythm. 2. He is on aspirin 81 mg a day. 3. Plavix 75 mg a day. We will see him in the office in 2 weeks. At that time, we will go ahead and resume the Eliquis and stop the aspirin and continue the Plavix as is the current protocol. The patient will be seen back in the office. FINAL DIAGNOSES: 1. Coronary artery disease with severe LAD stenosis, borderline stenosis in the right coronary, widely patent stent in the circumflex. 2. Paroxysmal atrial fibrillation, maintaining sinus rhythm. 3. Difficult to access problem as outlined above, ultimately did require repair of the left artery in the operating room. Dr. Whitt did indicate that the puncture site was just above the inguinal ligament, in the iliac. 4. Morbid obesity. Will be seen back in the office. Job ID: [id number]
== END 2020-05-30 10:30 | disposition home or self-care (01) ==
LOC: CCL 06:33 → 2NO 12:21
PROVIDERS: ADMIT Internal Medicine Cardiovascular Disease; ATTEND Internal Medicine Cardiovascular Disease
PROC: 027134Z Dilation of Coronary Artery, Two Arteries with Drug-eluting Intraluminal Device, Percutaneous Approach (ICD-10-PCS; principal; 2020-05-28)
PROC: 04VJ3DZ Restriction of Left External Iliac Artery with Intraluminal Device, Percutaneous Approach (ICD-10-PCS; 2020-05-28)
DX: I25.10 Atherosclerotic heart disease of native coronary artery without angina pectoris (principal); I48.0 Paroxysmal atrial fibrillation; E66.01 Morbid (severe) obesity due to excess calories; I11.0 Hypertensive heart disease with heart failure; I50.32 Chronic diastolic (congestive) heart failure; E11.9 Type 2 diabetes mellitus without complications; J44.9 Chronic obstructive pulmonary disease, unspecified; I73.9 Peripheral vascular disease, unspecified; E78.00 Pure hypercholesterolemia, unspecified; D50.8 Other iron deficiency anemias; Z68.38 Body mass index [BMI] 38.0-38.9, adult; Z79.01 Long term (current) use of anticoagulants; Z79.84 Long term (current) use of oral hypoglycemic drugs; Z79.899 Other long term (current) drug therapy; Z88.8 Allergy status to other drugs, medicaments and biological substances
CPT/HCPCS: 37242; 75630; 76942; 80048 ×2; 82962 ×3; 85025 ×3; 85347 ×2; 86850; 86900; 86901; 86920; 93454; 93571; 94640 ×3; 96374; 96376; 97139 ×2; C1769; C1874; C9600; G0378 ×3; 36415; 36416; 92928; 99152; 99153; J0153; J0360; J0461; J0690; J1642; J1644; J2001; J2250; J2405; J3010; J7620; Q9967

== ENCOUNTER 2020-09-08 15:36 | Inpatient (IN) | payer MEDICARE ==
--- NOTE | 2020-09-08 16:15 | RAD ---
PORTABLE CHEST: Indications: Headache, slurred speech. FINDINGS: Lung bennett appear clear. No infiltrate identified. Heart size upper normal. Aortic calcifications se en. IMPRESSION: No acute process. POS: AGW
--- NOTE | 2020-09-08 16:36 | CT ---
CT BRAIN NONCONTRAST: DATE: 09/08/2020 HISTORY: 85-year-old male with headache and dysarthria FINDINGS: There is no evidence of acute intra-axial or extra-axial hemorrhage. There is no midline shift or any other mass effect. There is no extra-axial fluid collection. There is no evidence of obstructive hydrocephalus. Calvarium is intact. IMPRESSION: No acute intracranial findings.
[2020-09-08 17:48] LABS: #Eosinphils 0.1 thou/uL (0.0-0.7); #Lymphocytes 1.9 thou/uL (1.20-3.40); #Monocytes 0.8 thou/uL (0.11-0.59); #Neutrophils 5.5 thou/uL (1.40-6.50); %Basophils 0.4 % (0.0-1.0); %Eosinophils 1.7 % (0.0-10.0); %Lymphocytes 22.7 % (21.0-51.0); %Monocytes 9.2 % (0.0-10.0); %Neutrophils 66.1 % (42.0-75.0); Hemoglobin 12.3 g/dL (14.0-18.0); Mean Corpuscular HGB CONC 32.2 g/dL (32.0-36.0); Mean Corpuscular Hemoglobin 30.5 pg (27.0-31.0); Mean Corpuscular Volume 94.8 fL (78.0-98.0); Platelet Count 325 thou/uL (130-400); RBC Distribution Width 13.1 % (11.5-14.5); Red Blood Cell (RBC) Count 4.03 mill/uL (4.70-6.10); White Blood Cell (WBC) Count 8.3 thou/uL (4.8-10.8)
[2020-09-08 17:52] LABS: INR-International Normal Ratio 1.1; PTT 34.6 sec (22.9-36.1); Prothrombin Time 14.2 sec (12.0-14.7)
[2020-09-08 18:05] LABS: ALT (SGPT) 15 U/L (8-55); AST (SGOT) 13 U/L (5-34); Albumin 4.1 g/dL (3.4-4.8); Alkaline Phosphatase 47 U/L (40-110); Anion Gap 16 mmol/L (10-20); BUN (Urea Nitrogen) 18 mg/dL (8.4-25.7); Bilirubin, Total 0.3 mg/dL (0.2-1.2); Calc. Creatinine Clearance 0 mL/min (70-130); Calcium 8.8 mg/dL (7.8-10.44); Carbon Dioxide 23 mmol/L (23-31); Chloride 108 mmol/L (98-107); Globulin 2.9 g/dL (2.4-3.5); Glucose 98 mg/dL (83-110); Potassium 4.8 mmol/L (3.5-5.1); Sodium 142 mmol/L (136-145)
[2020-09-08] MEDS ORDERED: Nitroglycerin 2% Ointment 1 INCH/1 GM Packet ONE (20:04)
[2020-09-08] MEDS ORDERED: hydrALAZINE 20 MG/ML VIAL ONE (20:04)
[2020-09-08] MEDS ORDERED: Aspirin 325 MG TAB ONE (20:15)
[2020-09-09 02:11] VITALS: BMI 40.8
--- NOTE | 2020-09-09 02:14 | PDOC.HHP ---
Hospitalist HPI - History of Present Illness Dyspepsia History of Present Illness: This is an 85-year-old male patient with a history of atrial fibrillation not on anticoagulation, CHF, COPD and SHARMILA who presents with a 2-day history of intermittent episodes of difficulty. Patient was in his usual state of health when the symptoms began. He has never experienced her symptoms before. He also stated no significant neurological deficits including facial droop, limb weakness or fall. On presentation to the ED his BP is varying between 1 88-2 36 systolic. His temperature was 97.9, respiratory 20, pulse 66 and saturating 97 on room air. Labs are generally unremarkable. CT scan of his head also showed no acute events. He was given aspirin and hydralazine and nitro. Hospitalist team was consulted for admission. Hospitalist ROS - Review of Systems Constitutional: denies: fever, chills, sweats, weakness Eyes: denies: pain, vision change, conjunctivae inflammation ENT: denies: ear pain, nose discharge, mouth swelling Respiratory: denies: cough, shortness of breath, hemoptysis Cardiovascular: denies: chest pain, palpitations, orthopnea Gastrointestinal: denies: nausea, vomiting, abdominal pain Genitourinary: denies: dysuria, frequency, incontinence Musculoskeletal: denies: neck pain, shoulder pain, arm pain Neurological: denies: weakness, incoordination All other systems reviewed; all pertinent +/- noted in HPI/Subj - Medication Medications: Medications: Currently refer to ambulatory list. Allergies: Lisinopril Hospitalist History - Past Medical History Other Medical History: Paroxysmal A. fib, SHARMILA, CHF - Family History Family History: reports: no pertinent history Other Family History: Ablation for A. fib, stents, hernia repair. - Social History Smoking Status: Never smoker Alcohol: reports: None - Exam General Appearance: awake alert Eye: PERRL, anicteric sclera ENT: normocephalic atraumatic, no oropharyngeal lesions, moist mucosa Neck: supple, symmetric Respiratory: CTAB, no wheezes, no rales, no ronchi Gastrointestinal: soft, non-tender, non-distended, normal bowel sounds Extremities: no cyanosis, no clubbing, no edema Skin: normal turgor, no lesions, no rashes Neurological: cranial nerve grossly intact, normal sensation to touch, no focal deficits Psychiatric: normal affect, normal behavior, A&O x 3 Hospitalist Results - Labs Result Diagrams: 09/08/20 17:34 09/08/20 17:34 Lab results: WBC 8.3 thou/uL (4.8-10.8) 09/08/20 17:34 Hgb 12.3 g/dL (14.0-18.0) L 09/08/20 17:34 Hct 38.2 % (42.0-52.0) L 09/08/20 17:34 MCV 94.8 fL (78.0-98.0) 09/08/20 17:34 Plt Count 325 thou/uL (130-400) 09/08/20 17:34 Neutrophils % 66.1 % (42.0-75.0) 09/08/20 17:34 Sodium 142 mmol/L (136-145) 09/08/20 17:34 Potassium 4.8 mmol/L (3.5-5.1) 09/08/20 17:34 Chloride 108 mmol/L (98-107) H 09/08/20 17:34 Carbon Dioxide 23 mmol/L (23-31) 09/08/20 17:34 BUN 18 mg/dL (8.4-25.7) 09/08/20 17:34 Creatinine 1.21 mg/dL (0.7-1.3) 09/08/20 17:34 Glucose 98 mg/dL (83-110) 09/08/20 17:34 Calcium 8.8 mg/dL (7.8-10.44) 09/08/20 17:34 Total Bilirubin 0.3 mg/dL (0.2-1.2) 09/08/20 17:34 AST 13 U/L (5-34) 09/08/20 17:34 ALT 15 U/L (8-55) 09/08/20 17:34 Alkaline Phosphatase 47 U/L (40-110) 09/08/20 17:34 Troponin I Less than 0.010 ng/mL (< 0.028) 09/08/20 17:34 Serum Total Protein 7.0 g/dL (5.8-8.1) 09/08/20 17:34 Albumin 4.1 g/dL (3.4-4.8) 09/08/20 17:34 Hospitalist H&P A/P - Plan Plan: This is an 85-year-old male patient with history of A. fib, CHF and SHARMILA who presents with a 2-day history of intermittent dysphagia. Initial symptoms were concerning for stroke/TIA. Stroke/TIA Started aspirinwe will continue We will start statin Echocardiogram lipid profile in a.m. PT a.m. Neurochecks, fall precautions Neuro consult. Hypertensive emergency. Patient BP improved with systolic in the 176/70. We will continue as needed IV medications at home blood pressure medications Close monitoring of BP. CODE STATUSfull code VT prophylaxisLovenox.
[2020-09-09 06:35] LABS: SARS-CoV-2 MS2 Positive; SARS-CoV-2 N Gene Negative; SARS-CoV-2 S Gene Negative; SARS-CoV-2 by NAA Not Detected (NotDetected); SARS-CoV-2 orf1ab Negative
[2020-09-09] MEDS ORDERED: Acetaminophen 325 MG TAB PO PRN (07:21)
[2020-09-09 08:15] LABS: #Eosinphils 0.1 thou/uL (0.0-0.7); #Lymphocytes 1.5 thou/uL (1.20-3.40); #Monocytes 0.7 thou/uL (0.11-0.59); #Neutrophils 5.5 thou/uL (1.40-6.50); %Basophils 0.6 % (0.0-1.0); %Eosinophils 1.6 % (0.0-10.0); %Neutrophils 69.8 % (42.0-75.0); Hemoglobin 12.2 g/dL (14.0-18.0); Mean Corpuscular Hemoglobin 30.1 pg (27.0-31.0); Mean Corpuscular Volume 94.1 fL (78.0-98.0); Mean Platelet Volume 7.5 fL (7.4-10.4); Platelet Count 319 thou/uL (130-400); RBC Distribution Width 12.9 % (11.5-14.5); Red Blood Cell (RBC) Count 4.05 mill/uL (4.70-6.10); White Blood Cell (WBC) Count 7.8 thou/uL (4.8-10.8)
[2020-09-09 08:29] LABS: Anion Gap 14 mmol/L (10-20); BUN (Urea Nitrogen) 14 mg/dL (8.4-25.7); Calc. Creatinine Clearance 116 mL/min (70-130); Carbon Dioxide 23 mmol/L (23-31); Cardiac Risk 2.8 (Less than 4.5); Chloride 106 mmol/L (98-107); Cholesterol 94 mg/dl (< 200 Desired); Glucose 138 mg/dL (83-110); HDL Cholesterol 33 mg/dL (>60 Neg Risk); LDL Cholesterol, Calculated 45 mg/dL; Potassium 4.5 mmol/L (3.5-5.1); Sodium 138 mmol/L (136-145); Triglycerides 81 mg/dL (Less than 150)
[2020-09-09] MEDS ORDERED: Aspirin Chewable 81 MG TAB ONE (08:42)
[2020-09-09] MEDS ORDERED: Enoxaparin Sodium 40 MG/0.4 ML SYRINGE ONE (08:42)
[2020-09-09] MEDS ORDERED: Enoxaparin Sodium 40 MG/0.4 ML SYRINGE SC SCH (09:00)
[2020-09-09] MEDS ORDERED: Aspirin 81 mg Enteric Coated Tablet PO SCH (09:00)
[2020-09-09] MEDS ORDERED: Acetaminophen 325 MG TAB ONE ×2 (09:30)
[2020-09-09] MEDS ORDERED: Lorazepam 2 MG/ML VIAL SLOW IVP SCH (10:00)
[2020-09-09] MEDS ORDERED: Iopamidol-370 76% 500 ML 1 ML ONE (12:52)
--- NOTE | 2020-09-09 13:38 | CT ---
CT ANGIOGRAM NECK WITH CONTRAST CT ANGIOGRAM BRAIN WITH AND WITHOUT CONTRAST: DATE: 09/09/2020 HISTORY: 85-year-old male with dizziness and dysarthria with headache and labile hypertension TECHNIQUE: Standard noncontrast brain CT performed first. After IV contrast injection, arterial bolus chasing technique scan performed from pulmonic trunk to v ertex of head. Coronal and sagittal 3-D MIP reconstructions. FINDINGS: There is no evidence of acute intra-axial or extra-axial hemorrhage. There is no midline shift or any other mass effect. There is no extra-axial fluid collection. There is no evidence of obstructive hydrocephalus. Calvarium is intact. There is diffuse brain parenchymal volume loss. Numerous biapical bullae plus centrilobular emphysematous changes in upper lobes. Right apical pulmon leila scar with suture line and calcification. Aortic arch: Heavy atherosclerotic calcification. No aneurysm or dissection. Brachiocephalic: Calcified plaque at origin and distally. No high-grade stenosis. Right subclavian: Distal calcified plaque at level of right vertebral artery origin. Questionable add itional noncalcified soft plaque (versus artifact) causes questionably severe stenosis (streak artifact from dense contrast material in adjacent right subclavian vein and brachiocephalic vein degr ades the images of this area. Left subclavian: Scattered calcified plaque. No severe stenosis identified. Right vertebral: Despite the heavily calcified plaque at the origin, the degree of stenosis there is probably mild. The rest of the proximal portions of the vessel are somewhat difficult to evaluate because of shoulders. No stenosis identified involving mid and distal cervical portions. Mild atheros clerosis with mild stenosis of intracranial portion. Left vertebral: Dominant side. No high-grade stenosis. Prominent calcified plaque at intracranial por tion without severe stenosis. Right common carotid: No high-grade stenosis. Medialized, retropharyngeal course distally. Left common carotid: No high-grade stenosis. Medialized, retropharyngeal course distally. Right internal carotid: Prominent calcified plaque at carotid bulb extending a length of 1 cm cephala d, causing mild, estimated 20-40% stenosis. Left internal carotid: Prominent calcified plaque at carotid bulb extending approximately 1 cm cephal ad. At the origin, degree of stenosis is estimated to be approximately 70 % Carotid siphons: Extensively calcified bilaterally, making it difficult to evaluate luminal caliber. Bilateral MCAs: No thrombosis, occlusion, or high-grade stenosis of M1 segments. M2 segments appear t o be patent. Bilateral ACAs: A1 and A2 segments are patent. Patent anterior communicating artery. No posterior communicating artery visualized. Basilar: Normal caliber. Bilateral salesforce specialist: Normal caliber P1 and P2 segments. Posterior communicating artery: None present. Bilateral superior cerebellar: Proximally patent Bilateral PICA: Proximally patent No intracranial aneurysm identified No dural venous sinus thrombosis. IMPRESSION: 1) atherosclerosis at multiple locations. 2) estimated approximate 70% stenosis at origin of left internal carotid. 3) questionable high-grade stenosis at right subclavian artery at level of vertebral artery takeoff, versus artifact. 4) no M1 segment thrombus/occlusion
--- NOTE | 2020-09-09 15:08 | CON ---
NEUROLOGY CONSULTATION DATE OF CONSULTATION: 09/09/2020 REASON FOR CONSULTATION: Dizziness/headache/two episodes of aphasia. HISTORY OF PRESENT ILLNESS: Mr. Mariscal is an 85-year-old male with medical history significant for atrial fibrillation, congestive heart failure, COPD, and obstructive sleep apnea, presented to the emergency room with two intermittent episodes of difficulty speaking receptive aphasia, which resolved on its own associated with headache. Per the patient, he was in usual state of health on . When he had a headache with an episode of aphasia during which he has difficulty talking, which lasted for few hours and resolved on its own. Then, he had another episode on Tuesday. He discussed this with his physician who decided to bring him to the emergency room for further evaluation. The patient denies any focal weakness, focal paresthesias, nausea, vomiting, chest pain, abdominal pain, recent illness or recent exposure to COVID, loss of vision or involuntary movements associated with the episode. He was given aspirin in the emergency room and on hydralazine and admitted for further evaluation. Head CT did not reveal any acute intracranial pathology. The patient still complains of dizziness and being unsteady on feet. REVIEW OF SYSTEMS: All systems reviewed and were negative except the pertinent positives and negatives mentioned in the HPI. HOME MEDICATIONS: Refer to reconciled medication list. ALLERGIES: LISINOPRIL. THE PATIENT DOES TAKE ASPIRIN, PLAVIX AND ELIQUIS. PAST MEDICAL HISTORY: Paroxysmal atrial fibrillation, obstructive sleep apnea, congestive heart failure. PAST FAMILY HISTORY: Not significant. SURGICAL HISTORY: Atrial fibrillation, on stents, hernia repair. SOCIAL HISTORY: The patient denies smoking, alcohol, illegal drug use. PHYSICAL EXAMINATION: General Appearance: awake alert Eye: PERRL, anicteric sclera ENT: normocephalic atraumatic, no oropharyngeal lesions, moist mucosa Neck: supple, symmetric Respiratory: CTAB, no wheezes, no rales, no ronchi Gastrointestinal: soft, non-tender, non-distended, normal bowel sounds Extremities: no cyanosis, no clubbing, no edema Skin: normal turgor, no lesions, no rashes Neurological: Mental status, the patient is alert and oriented to person, place, and time. Recent and remote memory intact. Fund of knowledge is appropriate. Speech is clear. Motor muscle tone and bulk are normal. Strength 5/5 bilaterally. Sensory intact. Cerebellar, finger-nose testing intact. Cranial nerves 2 through 12 intact. Gait deferred due to patient's safety reason. DATA REVIEWED: I reviewed the labs which were significant for anemia, hemoglobin of 12.3, hematocrit of 36.2. WBC 8.3 thou/uL (4.8-10.8) 09/08/20 17:34 Hgb 12.3 g/dL (14.0-18.0) L 09/08/20 17:34 Hct 38.2 % (42.0-52.0) L 09/08/20 17:34 MCV 94.8 fL (78.0-98.0) 09/08/20 17:34 Plt Count 325 thou/uL (130-400) 09/08/20 17:34 Neutrophils % 66.1 % (42.0-75.0) 09/08/20 17:34 Sodium 142 mmol/L (136-145) 09/08/20 17:34 Potassium 4.8 mmol/L (3.5-5.1) 09/08/20 17:34 Chloride 108 mmol/L (98-107) H 09/08/20 17:34 Carbon Dioxide 23 mmol/L (23-31) 09/08/20 17:34 BUN 18 mg/dL (8.4-25.7) 09/08/20 17:34 Creatinine 1.21 mg/dL (0.7-1.3) 09/08/20 17:34 Glucose 98 mg/dL (83-110) 09/08/20 17:34 Calcium 8.8 mg/dL (7.8-10.44) 09/08/20 17:34 Total Bilirubin 0.3 mg/dL (0.2-1.2) 09/08/20 17:34 AST 13 U/L (5-34) 09/08/20 17:34 ALT 15 U/L (8-55) 09/08/20 17:34 Alkaline Phosphatase 47 U/L (40-110) 09/08/20 17:34 Troponin I Less than 0.010 ng/mL (< 0.028) 09/08/20 17:34 Serum Total Protein 7.0 g/dL (5.8-8.1) 09/08/20 17:34 Albumin 4.1 g/dL (3.4-4.8) 09/08/20 17:34 ASSESSMENT AND PLAN: Mr. Mariscal is an 85-year-old male with history significant for atrial fibrillation, congestive heart failure, obstructive sleep apnea, presented with two intermittent episodes of difficulty in speech. The symptoms were concerning for TIA. The patient continues to be unsteady at feet and feels dizzy. Rest of the symptoms were resolved. There is still concern of posterior circulation, TIA/stroke. Continue aspirin, Plavix, and Eliquis for secondary stroke prevention. Consider MRI of the brain to assess acute intracranial process, CTA of the head and neck, 2D echo to evaluate left ventricular ejection fraction. Continue high-intensity statin for secondary stroke prevention. EEG to rule out cortical irritability. Neuro checks every 4 hours. Permissive control of blood pressure at this time. Strict control of blood glucose. Check orthostatics. Telemetry to rule out arrhythmia, PT/OT/speech. Fall precautions. Continue home medications. Check hemoglobin A1c, fasting lipid panel, and TSH. Control of blood glucose. Continue medical management per primary team. We will continue to follow. Plan discussed in detail with the patient, at bedside and also with the primary attending Dr. Porter Thank you for the consult. Job ID: [id number] MTDD
[2020-09-09] MEDS ORDERED: Lorazepam 2 MG/ML VIAL ONE (15:34)
--- NOTE | 2020-09-09 16:24 | MRI ---
EXAM: MRI Brain WO Con PROVIDED CLINICAL HISTORY: TIA. Patient with dizziness and difficulty forming words. Headache and fluctuating blood pressure. COMPARISON: CT head ON 09/09/2020. FINDINGS: Few nonspecific scattered punctate areas of increased FLAIR and T2-weighted signal intensity are seen which are nonspecific and of uncertain etiology but may related to mild chronic small vessel ischemic changes. There are no areas of restricted diffusion seen to suggest an acute infarction. There is an oval-shaped dural-based mass just medial to the right occipital lobe along the interhemis pheric fissure which demonstrates intermediate T2 and increased FLAIR signal intensity and is most suggestive of a small meningioma measuring 18 mm AP x7 mm transverse. This lesion is only faintly vis ualized on the postcontrast CTA brain. Mild cerebral volume loss is present. The ventricular system is normal in size, shape, and position f or the degree of sulcal atrophy. Septum pellucidum and third ventricle are in the midline. Hughes lenses are not visualized. There is prominent motion on several images, but the visualized par anasal sinuses and remainder of the skull base demonstrate a normal MRI appearance. Allowing for motion artifact, there appear to be appropriate flow voids in the large intracranial ves sels at the base of the brain. IMPRESSION: 1. No acute intracranial abnormality demonstrated. 2. Nodular volume loss. 3. 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
[2020-09-09] MEDS ORDERED: Dronedarone HCl 400 MG TAB PO SCH (17:30)
[2020-09-09] MEDS ORDERED: Losartan 25 MG TAB PO SCH (17:45)
--- NOTE | 2020-09-09 19:00 | PDOC.EVN ---
Event Note - Event Note Event Note: Patient was seen also in the emergency department holding. Patient appears to be largely resolved of any symptoms at this time. He has significant risk factors for CVA and had evidence of TIA with intermittent expressive aphasia. He appears to have clear speech patterns at this time. Patient is already on aspirin, Plavix, Eliquis. His CTA revealed 70% stenosis of the left carotid. There is also some subclavian stenosis. Discussed with Dr. Ni. Will consult CV surgery. Patient has seen Dr. Whitt in the past. Echo results are still pending. EEG pending. Patient appeared to passes dysphagia screening well.
--- NOTE | 2020-09-09 19:08 | ULT ---
BILATERAL CAROTID DUPLEX ULTRASOUND: HISTORY: Transient ischemic attack COMPARISON: None Correlation: CT angiogram the neck 09/09/2020 TECHNIQUE: Grayscale, color-flow and spectral Doppler ultrasound imaging of the extracranial carotid artery syst ems and vertebral arteries was performed bilaterally. FINDINGS: No large amount of echogenic plaque is seen involving the common carotid or internal carotid arteries . The peak systolic velocity in the right ICA measures 89.8 cm/s. The peak systolic velocity in the ri ght CCA measures 62.7 cm/s. The peak systolic velocity in the left ICA measures 110.3 cm/s. The peak systolic velocity in the left CCA measures 144.0 cm/s. The right IC/CC ration is1.4. The left IC/CC ratio is 0.8. Vertebral flow: antegrade, bilaterally. . IMPRESSION: 1. No hemodynamically significant stenosis in the right carotid artery. 2. Elevated velocity of the proximal left common carotid artery which may be due to technical factors . No evidence of significant thrombus or atherosclerotic disease. Please refer to CT angiogram of the neck performed on 09/09/2020 for better interrogation of the great vessels of the neck.
[2020-09-09] MEDS ORDERED: Atorvastatin Calcium 40 MG TAB PO SCH (21:00)
[2020-09-09] MEDS ORDERED: Apixaban 5 MG TAB PO SCH (21:00)
[2020-09-09] MEDS: Rosuvastatin 20 MG TAB PO SCH (21:07)
[2020-09-09] MEDS: Enoxaparin Sodium 120 MG/0.8 ML SYRINGE SC SCH (21:07)
[2020-09-09] MEDS: Famotidine 20 MG TAB PO SCH (21:07)
--- NOTE | 2020-09-09 22:07 | CON ---
DATE OF CONSULTATION: 09/09/2020 REASON FOR CONSULTATION: Transient ischemic attack. HISTORY OF PRESENT ILLNESS: Mr. Karlo Mariscal is an 85-year-old gentleman with history of coronary artery disease and paroxysmal atrial fibrillation. Recently has had episodes of difficulty with his speech which were relatively prolonged compatible with transient ischemic attack. MRI has not shown any significant abnormalities, but angiography by CTs revealed a 70% stenosis in left internal carotid artery. PAST MEDICAL HISTORY: Hypertension, coronary artery disease with recent stent implantation, did require surgery for vascular difficulty of the left femoral artery. The patient had extremely deep vessels that were difficult to access. We were not able to access from the right, but it was able to accessed from the left, but it required surgical repair done successfully by Dr. Whitt. MEDICATIONS: At home, the patient was takin. Eliquis 5 mg twice a day. 2. Multaq 400 mg twice a day. 3. Plavix 75 mg a day. 4. He was taken off aspirin. 5. Losartan 50 mg a day. 6. Rosuvastatin 20 mg a day. ALLERGIES: LISINOPRIL. PHYSICAL EXAMINATION: GENERAL: This is a pleasant elderly gentleman who is very overweight, 5 foot 10, 285 pounds. Blood pressure 170/50, pulse in the 50s. LUNGS: Clear. CARDIAC: Normal S1, normal S2. ABDOMEN: Very obese. EXTREMITIES: No clubbing or cyanosis. Extremities are warm and dry. IMAGING: EKG, sinus bradycardia. ASSESSMENT: 1. Transient ischemic attack. 2. Left carotid stenosis. 3. Paroxysmal atrial fibrillation. He has been on Eliquis. PLAN: 1. Would recommend Vascular surgery consultation. 2. Continue Eliquis for now. 3. Continue Plavix for now. He has had a recent stent implantation in his LAD. 4. Losartan 50 mg now, then increase to 100 mg starting tomorrow. 5. I had to take him off beta blockers due to bradycardia. 6. Resume Multaq. 7. Continue rosuvastatin. Job ID: [id number]
[2020-09-10] MEDS: Dronedarone HCl 400 MG TAB PO SCH ×2 (07:24→19:10)
[2020-09-10] MEDS ORDERED: Famotidine 20 MG TAB ONE (09:03)
[2020-09-10] MEDS ORDERED: Losartan 25 MG TAB ONE (09:04)
--- NOTE | 2020-09-10 10:53 | CT ---
CT ANGIOGRAM NECK WITH CONTRAST CT ANGIOGRAM BRAIN WITH AND WITHOUT CONTRAST: DATE: 09/09/2020 HISTORY: 85-year-old male with dizziness and dysarthria with headache and labile hypertension TECHNIQUE: Standard noncontrast brain CT performed first. After IV contrast injection, arterial bolus chasing technique scan performed from pulmonic trunk to v ertex of head. Coronal and sagittal 3-D MIP reconstructions. FINDINGS: There is no evidence of acute intra-axial or extra-axial hemorrhage. There is no midline shift or any other mass effect. There is no extra-axial fluid collection. There is no evidence of obstructive hydrocephalus. Calvarium is intact. There is diffuse brain parenchymal volume loss. Numerous biapical bullae plus centrilobular emphysematous changes in upper lobes. Right apical pulmon leila scar with suture line and calcification. Aortic arch: Heavy atherosclerotic calcification. No aneurysm or dissection. Brachiocephalic: Calcified plaque at origin and distally. No high-grade stenosis. Right subclavian: Distal calcified plaque at level of right vertebral artery origin. Questionable add itional noncalcified soft plaque (versus artifact) causes questionably severe stenosis (streak artifact from dense contrast material in adjacent right subclavian vein and brachiocephalic vein degr ades the images of this area. Left subclavian: Scattered calcified plaque. No severe stenosis identified. Right vertebral: Despite the heavily calcified plaque at the origin, the degree of stenosis there is probably mild. The rest of the proximal portions of the vessel are somewhat difficult to evaluate because of shoulders. No stenosis identified involving mid and distal cervical portions. Mild atheros clerosis with mild stenosis of intracranial portion. Left vertebral: Dominant side. No high-grade stenosis. Prominent calcified plaque at intracranial por tion without severe stenosis. Right common carotid: No high-grade stenosis. Medialized, retropharyngeal course distally. Left common carotid: No high-grade stenosis. Medialized, retropharyngeal course distally. Right internal carotid: Prominent calcified plaque at carotid bulb extending a length of 1 cm cephala d, causing mild, estimated 20-40% stenosis. Left internal carotid: Prominent calcified plaque at carotid bulb extending approximately 1 cm cephal ad. At the origin, degree of stenosis is estimated to be approximately 70 % Carotid siphons: Extensively calcified bilaterally, making it difficult to evaluate luminal caliber. Bilateral MCAs: No thrombosis, occlusion, or high-grade stenosis of M1 segments. M2 segments appear t o be patent. Bilateral ACAs: A1 and A2 segments are patent. Patent anterior communicating artery. No posterior communicating artery visualized. Basilar: Normal caliber. Bilateral fur floor worker: Normal caliber P1 and P2 segments. Posterior communicating artery: None present. Bilateral superior cerebellar: Proximally patent Bilateral PICA: Proximally patent No intracranial aneurysm identified No dural venous sinus thrombosis. IMPRESSION: 1) atherosclerosis at multiple locations. 2) estimated approximate 70% stenosis at origin of left internal carotid. 3) questionable high-grade stenosis at right subclavian artery at level of vertebral artery takeoff, versus artifact. 4) no M1 segment thrombus/occlusion Transcribed Date/Time: 09/10/2020 10:52 AM
[2020-09-10] MEDS: Famotidine 20 MG TAB PO SCH ×2 (11:16→21:58)
[2020-09-10] MEDS: Enoxaparin Sodium 120 MG/0.8 ML SYRINGE SC SCH (11:16)
[2020-09-10] MEDS: Clopidogrel Bisulfate 75 MG TAB PO SCH (11:16)
[2020-09-10] MEDS: Losartan 25 MG TAB PO SCH (11:16)
--- NOTE | 2020-09-10 11:32 | CON ---
DATE OF CONSULTATION: 09/10/2020 HISTORY OF PRESENT ILLNESS: Mr. Mariscal is an 85-year-old gentleman, who was admitted with history of 2 recent episodes of speech difficulty. He says he could not find his words and could not speak for a period of 2 to 3 hours, the last one was yesterday. His family encouraged him to come through the emergency room. He has never had any previous incidents. He is in chronic atrial fibrillation and takes Eliquis 5 mg a day for his atrial fibrillation. Currently, he is in his usual state of health, resting comfortably in the preoperative area. PAST MEDICAL HISTORY: 1. Atrial fibrillation. 2. Hypertension. 3. Coronary artery disease. 4. History of left femoral pseudoaneurysm post catheterization. PAST SURGICAL HISTORY: Repair of pseudoaneurysm. CURRENT MEDICATIONS: 1. Eliquis 5 mg daily. 2. Plavix 75 mg daily. 3. Multaq 400 mg b.i.d. 4. Losartan 50 mg daily. 5. Rosuvastatin 20 mg daily. ALLERGIES: LISINOPRIL. PHYSICAL EXAMINATION: GENERAL: This is a well-developed, well-nourished male, resting comfortably without issues. VITAL SIGNS: Temperature is 97.6, pulse is 80 and regular, blood pressure is 127/55. He is getting ready to undergo an EEG. HEART: Rhythm is regular. ABDOMEN: Soft and nontender. LUNGS: Clear bilaterally. NEUROLOGIC: He has equal motor bilaterally. His speech is at baseline. He has no sensory deficits that he can elucidate. LABORATORY DATA: Of note, hemoglobin is 12.2, platelet count is 319,000. Creatinine is 0.88, potassium is 4.5. I have reviewed his CT angiogram and he has bilateral carotid plaque in the bulbs. On the left, he has a significant stenosis of greater than 70% right at the bulb. ASSESSMENT AND PLAN: Symptomatic left carotid stenosis. I think he is a good TCAR candidate. We will make plans for TCAR in the near future. Job ID: [id number]
--- NOTE | 2020-09-10 12:49 | PDOC.EEG ---
Neurology EEG Report - Report Report: This EEG was performed using 24 channel [employer] video EEG machine with 24 disc electrodes. This was an extended 2 hours 6 minutes of inpatient video EEG recording. Digital analysis of the EEG was done for spike and seizure detection which revealed no abnormalities. Background: There is a nonsustained posterior background rhythm of 8.5-9 Hz. Hyperventilation: Not performed. Photic Stimulation: No significant response. Sleep: Drowsiness is observed . EEG Diagnosis: Normal awake and drowsy EEG.
--- NOTE | 2020-09-10 13:09 | PDOC.NEUPN ---
- Subjective Encounter Date: 09/10/20 Subjective: Mr. Mariscal is doing well today. However, according to him he does feel wobbly when he tried to walk earlier this morning. No focal deficits on exam. - Objective Vital Signs & Weight: Vital Signs (12 hours) Temp Pulse Resp BP BP Pulse Ox 09/10/20 08:28 97.6 F 80 18 127/55 L 95 09/10/20 03:32 98.2 F 61 19 157/55 H 92 L Weight Weight 285 lb 0.923 oz Result Diagrams: 09/09/20 07:54 09/09/20 07:54 Additional Labs: Accuchecks 09/10/20 09/10/20 09/09/20 10:14 05:42 21:16 POC Glucose 135 H 133 H 109 H Radiology Reviewed by me: Yes EKG Reviewed by me: Yes ROS - Review of Systems Constitutional: denies: fever, chills, sweats, weakness, malaise, other Eyes: denies: pain, vision change, conjunctivae inflammation, eyelid inflammat ion, redness, other Respiratory: denies: cough, dry, shortness of breath, hemoptysis, SOB with excertion, pleuritic pain, sputum, wheezing, other Gastrointestinal: denies: nausea, vomiting, abdominal pain, diarrhea, constipation, melena, hematochezia, other Musculoskeletal: denies: neck pain, shoulder pain, arm pain, back pain, hand pain, leg pain, foot pain, other Neurological: denies: weakness, numbness, incoordination, change in speech, confusion, seizures, other - Medication Medications: Active Medications Generic Name Dose Route Start Last Admin Trade Name Kamronq PRN Reason Stop Dose Admin Acetaminophen 650 mg 09/09/20 07:21 09/09/20 09:45 Acetaminophen 325 Mg Tab PO 650 mg Q4H PRN Administration Headache/Fever or Pain Atorvastatin Calcium 40 mg 09/09/20 21:00 09/09/20 21:07 Atorvastatin Calcium 40 Mg Tab PO 40 mg HS EVELINE Administration Clopidogrel Bisulfate 75 mg 09/10/20 09:00 09/10/20 11:16 Clopidogrel Bisulfate 75 Mg Tab PO 75 mg DAILY EVELINE Administration Dronedarone 400 mg 09/10/20 08:00 09/10/20 07:24 Dronedarone Hcl 400 Mg Tab PO 400 mg BID-WM EVELINE Administration Enoxaparin Sodium 120 mg 09/09/20 21:00 09/10/20 11:16 Enoxaparin Sodium 120 Mg/0.8 Ml Syringe SC 120 mg 0900,2100 EVELINE Administration Famotidine 20 mg 09/09/20 21:00 09/10/20 11:16 Famotidine 20 Mg Tab PO 20 mg BID EVELINE Administration Losartan Potassium 50 mg 09/10/20 09:00 09/10/20 11:16 Losartan 25 Mg Tab PO 50 mg DAILY EVELINE Administration Rosuvastatin Calcium 20 mg 09/09/20 21:00 09/09/20 21:07 Rosuvastatin 20 Mg Tab PO 20 mg HS EVELINE Administration - Exam General Appearance: awake alert Eye: PERRL ENT: normocephalic atraumatic Neck: supple Respiratory: CTAB Cardiovascular: RRR Gastrointestinal: soft Extremities: no cyanosis Skin: normal turgor Neurological: CN's grossly intact, normal sensation to touch, no weakness, no focal deficits, no new deficit Musculoskeletal: normal tone, normal strength, no muscle wasting PSYCH: normal affect, normal behavior, A&O x 3, oriented to person, oriented to place, oriented to time Results - Labs Result Diagrams: 09/09/20 07:54 09/09/20 07:54 Lab results: WBC 7.8 thou/uL (4.8-10.8) 09/09/20 07:54 Hgb 12.2 g/dL (14.0-18.0) L 09/09/20 07:54 Hct 38.2 % (42.0-52.0) L 09/09/20 07:54 MCV 94.1 fL (78.0-98.0) 09/09/20 07:54 Plt Count 319 thou/uL (130-400) 09/09/20 07:54 Neutrophils % 69.8 % (42.0-75.0) 09/09/20 07:54 Sodium 138 mmol/L (136-145) 09/09/20 07:54 Potassium 4.5 mmol/L (3.5-5.1) 09/09/20 07:54 Chloride 106 mmol/L (98-107) 09/09/20 07:54 Carbon Dioxide 23 mmol/L (23-31) 09/09/20 07:54 BUN 14 mg/dL (8.4-25.7) 09/09/20 07:54 Creatinine 0.88 mg/dL (0.7-1.3) 09/09/20 07:54 Glucose 138 mg/dL (83-110) H 09/09/20 07:54 Calcium 9.0 mg/dL (7.8-10.44) 09/09/20 07:54 Total Bilirubin 0.3 mg/dL (0.2-1.2) 09/08/20 17:34 AST 13 U/L (5-34) 09/08/20 17:34 ALT 15 U/L (8-55) 09/08/20 17:34 Alkaline Phosphatase 47 U/L (40-110) 09/08/20 17:34 Troponin I Less than 0.010 ng/mL (< 0.028) 09/08/20 17:34 Serum Total Protein 7.0 g/dL (5.8-8.1) 09/08/20 17:34 Albumin 4.1 g/dL (3.4-4.8) 09/08/20 17:34 - Radiology Interpretation MRI - head Additional Comment: MRI of the head did not reveal any acute intracranial pathology. PN A/P (1) TIA (transient ischemic attack) Code(s): G45.9 - TRANSIENT CEREBRAL ISCHEMIC ATTACK, UNSPECIFIED Status: Acute (2) Stenosis of left carotid artery Code(s): I65.22 - OCCLUSION AND STENOSIS OF LEFT CAROTID ARTERY Status: Acute (3) Chronic a-fib Code(s): I48.2 - CHRONIC ATRIAL FIBRILLATION * DO NOT USE * Status: Chronic (4) DM2 (diabetes mellitus, type 2) Status: Chronic - Plan Daily Plan: PT/OT, speech therapy, DVT proph w/SCDs Mr. Mariscal is a 85-year-old male with medical history significant for chronic atrial fibrillation on Eliquis, aspirin and Plavix, diabetes mellitus presented with 2 episodes of aphasia which resolved on its own. No focal deficits on ex am. Most likely transient ischemic attack MRI of the brain reviewed which was negative for acute intracranial pathology. Initial head CT reviewed which was negative for acute intracranial pathology. CTA of the head showed subclavian stenosis in the neck showed 70% stenosis of the left ICA. Consider cardiovascular surgery input. EEG reviewed which was negative for seizure activity. 2D echocardiogram pending at this time. Strict control of blood pressure and blood glucose. Telemetry to rule out arrhythmias. Neurochecks every 4 hours. Fall precautions. Continue aspirin, Eliquis and Plavix for secondary stroke prevention and for chronic atrial fibrillation. Continue home medications. Continue medical management per primary team. Plan discussed in detail with the patient.
[2020-09-10] MEDS ORDERED: Doxylamine 25 MG TAB PO PRN (17:02)
--- NOTE | 2020-09-10 18:34 | PDOC.HOSPP ---
- Subjective Encounter Date: 09/10/20 Subjective: Well today. Asymptomatic. No complaints. - Objective Vital Signs & Weight: Vital Signs (12 hours) Temp Pulse Pulse Resp BP BP Pulse Ox 09/10/20 16:00 98.3 F 66 20 135/58 L 97 09/10/20 11:15 64 150/49 H 09/10/20 08:28 97.6 F 80 18 127/55 L 95 09/10/20 08:05 95 Pulse Ox 09/10/20 16:00 09/10/20 11:15 96 09/10/20 08:28 09/10/20 08:05 Weight Weight 285 lb 0.923 oz Result Diagrams: 09/09/20 07:54 09/09/20 07:54 Additional Labs: Accuchecks 09/10/20 09/10/20 09/10/20 16:29 10:14 05:42 POC Glucose 141 H 135 H 133 H 09/09/20 21:16 POC Glucose 109 H Hospitalist ROS - Medication Medications: Active Medications Generic Name Dose Route Start Last Admin Trade Name Freq PRN Reason Stop Dose Admin Acetaminophen 650 mg 09/09/20 07:21 09/09/20 09:45 Acetaminophen 325 Mg Tab PO 650 mg Q4H PRN Administration Headache/Fever or Pain Clopidogrel Bisulfate 75 mg 09/10/20 09:00 09/10/20 11:16 Clopidogrel Bisulfate 75 Mg Tab PO 75 mg DAILY EVELINE Administration Dronedarone 400 mg 09/10/20 08:00 09/10/20 07:24 Dronedarone Hcl 400 Mg Tab PO 400 mg BID- EVELINE Administration Famotidine 20 mg 09/09/20 21:00 09/10/20 11:16 Famotidine 20 Mg Tab PO 20 mg BID EVELINE Administration Losartan Potassium 50 mg 09/10/20 09:00 09/10/20 11:16 Losartan 25 Mg Tab PO 50 mg DAILY EVELINE Administration Rosuvastatin Calcium 20 mg 09/09/20 21:00 09/09/20 21:07 Rosuvastatin 20 Mg Tab PO 20 mg HS EVELINE Administration - Exam General Appearance: NAD, awake alert Heart: RRR, no murmur, no gallops, no rubs, normal peripheral pulses Respiratory: CTAB, no wheezes, no rales, no ronchi, normal chest expansion, no tachypnea, normal percussion Gastrointestinal: soft, non-tender, non-distended, normal bowel sounds, no palpable masses, no hepatomegaly, no splenomegaly, no bruit Extremities: no cyanosis, no clubbing, no edema Skin: normal turgor Neurological: no focal deficits Musculoskeletal: normal tone, normal strength Psychiatric: normal affect, normal behavior, A&O x 3 Hosp A/P (1) Stenosis of left carotid artery Code(s): I65.22 - OCCLUSION AND STENOSIS OF LEFT CAROTID ARTERY Status: Acute (2) TIA (transient ischemic attack) Code(s): G45.9 - TRANSIENT CEREBRAL ISCHEMIC ATTACK, UNSPECIFIED Status: Acute (3) Chronic a-fib Code(s): I48.2 - CHRONIC ATRIAL FIBRILLATION * DO NOT USE * Status: Chronic (4) DM2 (diabetes mellitus, type 2) Status: Chronic - Plan TIA: Patient presented with intermittent expressive aphasia. Symptoms resolved at the time of presentation. Evidence of significant carotid stenosis. MRI without evidence of acute CVA. Left carotid stenosis: Patient has greater than 70% stenosis on the left. Given his TIA symptoms he is a candidate for intervention. Seen in consultation by Dr. Whitt. Patient will likely undergo TCAR procedure soon. Atrial fibrillation: Rate controlled on Multaq. Eliquis held. Hyperlipidemia: Continue rosuvastatin. Hypertension: Continue with losartan.
[2020-09-10] MEDS: Rosuvastatin 20 MG TAB PO SCH (21:58)
[2020-09-11 08:59] VITALS: BP 165/72
[2020-09-11] MEDS ORDERED: Protamine Sulfate 50 MG/5 ML VIAL ONE (09:39)
[2020-09-11] MEDS ORDERED: Heparin 5,000 UNITS/ML VIAL ONE (09:39)
[2020-09-11] MEDS ORDERED: Ondansetron PF 4 MG/2 ML Vial ONE (09:45)
[2020-09-11] MEDS ORDERED: Lidocaine 1% PF 5 ML VIAL ONE (09:45)
[2020-09-11] MEDS ORDERED: Glycopyrrolate 0.2 MG/ML 5 ML SYRINGE ONE ×2 (09:45)
[2020-09-11] MEDS ORDERED: PROPOFOL 200 MG/20 ML VIAL ONE (09:45)
[2020-09-11] MEDS ORDERED: Rocuronium Bromide 10 MG/ML (10ML VIAL) ONE (09:45)
[2020-09-11] MEDS ORDERED: Labetalol HCl 100 MG/20 ML VIAL ONE (09:45)
[2020-09-11] MEDS ORDERED: Dexamethasone 20 MG/5 ML VIAL ONE (09:45)
[2020-09-11] MEDS ORDERED: Lidocaine 2% w/Epinephrine 1:200K 20 ML VIAL ONE (09:47)
[2020-09-11] MEDS ORDERED: Bupivacaine PF 0.5% 30 ML VIAL ONE (09:47)
[2020-09-11] MEDS: Dronedarone HCl 400 MG TAB PO SCH ×2 (11:35→18:14)
[2020-09-11] MEDS: Famotidine 20 MG TAB PO SCH (11:35)
[2020-09-11] MEDS: Clopidogrel Bisulfate 75 MG TAB PO SCH (11:35)
[2020-09-11] MEDS: Losartan 25 MG TAB PO SCH (11:36)
[2020-09-11] MEDS ORDERED: Fentanyl 100 MCG/2 ML VIAL ONE ×2 (11:36→14:28)
[2020-09-11] MEDS ORDERED: Phenylephrine 10 MG/ML VIAL ONE (11:37)
[2020-09-11] MEDS ORDERED: CEFAZOLIN 2 GM in Premix Bag 1 BAG IVPB SCH (12:00)
[2020-09-11] MEDS ORDERED: Fentanyl 100 MCG/2 ML VIAL SLOW IVP PRN (15:03)
[2020-09-11] MEDS ORDERED: Ondansetron PF 4 MG/2 ML Vial IVP PRN (15:03)
[2020-09-11] MEDS ORDERED: Nitroglycerin 50 MG/250 ML BOT 250 ML IVPB PRN (15:03)
[2020-09-11] MEDS ORDERED: Phenylephrine 40 MG in Sodium Chloride 0.9% 250 ML 250 ML IVPB PRN (15:03)
[2020-09-11] MEDS ORDERED: Promethazine HCl 25 MG/ML VIAL IM PRN (15:03)
[2020-09-11] MEDS ORDERED: traMADol HCl 50 MG TAB PO PRN (15:03)
[2020-09-11] MEDS ORDERED: hydrALAZINE 20 MG/ML VIAL SLOW IVP PRN (15:03)
[2020-09-11] MEDS ORDERED: Acetaminophen 325 MG TAB PO PRN (15:03)
[2020-09-11] MEDS ORDERED: Nitroglycerin 50 MG/250 ML BOT 250 ML ONE (15:16)
--- NOTE | 2020-09-11 15:28 | OP ---
DATE OF PROCEDURE: 09/11/2020 PREOPERATIVE DIAGNOSIS: Symptomatic left carotid stenosis. POSTOPERATIVE DIAGNOSIS: Symptomatic left carotid stenosis. PROCEDURES PERFORMED: 1. Ultrasound-guided interrogation of the left carotid artery and ultrasound-guided right femoral vein access. 2. TCAR with a 10 x 40 Enroute stent. ANESTHESIA: General endotracheal, Dr. Adrien Van. TOTAL CONTRAST: 17 mL. TOTAL FLUORO TIME: 1 minute 41 seconds. DESCRIPTION OF PROCEDURE: After consent was obtained, the patient was brought to the operating room and placed in supine position on the operating table. Appropriate central line and monitors were placed and general endotracheal anesthesia was induced. Left neck was interrogated with ultrasound. The carotid artery marked on his neck for a transverse incision. The neck and groins were prepped and draped in usual sterile fashion. Left carotid artery cutdown was performed. The sternocleidomastoid heads were split. The carotid was encircled with a vessel loop. A 5-0 Prolene pursestring suture was placed in the carotid artery. The patient was given 10,000 units of heparin. ACT returned greater than 250. Using ultrasound guidance, the right femoral vein was accessed and a NextDigest guidewire passed. The femoral venous sheath was then placed and flushed with heparinized saline. The carotid artery was accessed inside the pursestring with a micropuncture needle and micropuncture sheath was then placed. Hand-injected arteriogram was performed. The carotid bifurcation was marked. We elected to "stop short." The J-wire was passed up into the carotid bulb. The working sheath was then placed and secured with silk suture. Hand-injected arteriogram was performed with a final marking of the carotid bifurcation. The retrograde flow loop was then connected and retrograde flow was confirmed. Common carotid artery was clamped. The internal carotid artery was accessed with the 0.014 wire. This was confirmed on arteriography. The stent was then passed into the internal carotid artery and deployed distal to the area of stenosis extending back into the common carotid artery. Two separate arteriograms were performed and an AP and lateral view confirming an excellent result. After 2 minutes, flow reversal was terminated and the retrograde flow loop was removed. The sheath was then removed after unclamping the carotid and pursestring suture secured. A Z-stitch was then placed on top of the pursestring. A 50 mg of protamine was administered. Wounds were irrigated, closed in layers and Dermabond applied to the skin. The sheath in the groin was removed and manual pressure held for hemostasis. The patient was awakened and neurologically intact at completion. Needle, sponge, and instrument counts were all reported as correct at the end of the procedure. The patient was transferred to the recovery room in stable condition. Job ID: [id number]
[2020-09-11] MEDS: Sodium Chloride 0.9% 1,000 ML IV SCH (15:34)
--- NOTE | 2020-09-11 17:09 | PDOC.HOSPP ---
- Subjective Encounter Date: 09/11/20 Subjective: Patient was seen prior to his procedure today. He was feeling well. No symptoms. No complaints. - Objective Vital Signs & Weight: Vital Signs (12 hours) Temp Pulse Resp BP BP Pulse Ox 09/11/20 12:29 98.2 F 58 L 20 165/72 H 95 09/11/20 08:40 98 09/11/20 08:00 97.6 F 57 L 18 165/72 H 92 L Weight Weight 285 lb 0.923 oz Result Diagrams: 09/09/20 07:54 09/09/20 07:54 Additional Labs: Accuchecks 09/11/20 09/10/20 06:38 20:48 POC Glucose 129 H 158 H Hospitalist ROS - Medication Medications: Active Medications Generic Name Dose Route Start Last Admin Trade Name Freq PRN Reason Stop Dose Admin Acetaminophen 650 mg 09/09/20 07:21 09/09/20 09:45 Acetaminophen 325 Mg Tab PO 650 mg Q4H PRN Administration Headache/Fever or Pain Clopidogrel Bisulfate 75 mg 09/10/20 09:00 09/11/20 11:35 Clopidogrel Bisulfate 75 Mg Tab PO Not Given DAILY EVELINE Doxylamine Succinate 25 mg 09/10/20 17:02 09/10/20 22:26 Doxylamine 25 Mg Tab PO 25 mg HS PRN Administration Insomnia Dronedarone 400 mg 09/10/20 08:00 09/11/20 11:35 Dronedarone Hcl 400 Mg Tab PO Not Given BID-WM EVELINE Famotidine 20 mg 09/09/20 21:00 09/11/20 11:35 Famotidine 20 Mg Tab PO Not Given BID EVELINE Sodium Chloride 1,000 mls @ 100 mls/hr 09/11/20 15:03 09/11/20 15:34 Normal Saline 0.9% IV 1,000 mls .Q10H EVELINE Administration Nitroglycerin/Dextrose 250 mls @ 0 mls/hr 09/11/20 15:03 09/11/20 15:34 Nitroglycerin 50 Mg/250 Ml Bot IVPB 250 mls PRN PRN Administration To Keep SBP < 160 mmHG Protocol Titrate Losartan Potassium 50 mg 09/10/20 09:00 09/11/20 11:36 Losartan 25 Mg Tab PO Not Given DAILY EVELINE Rosuvastatin Calcium 20 mg 09/09/20 21:00 09/10/20 21:58 Rosuvastatin 20 Mg Tab PO 20 mg HS EVELINE Administration - Exam General Appearance: NAD, awake alert Heart: RRR, no murmur, no gallops, no rubs, normal peripheral pulses Respiratory: CTAB, no wheezes, no rales, no ronchi, normal chest expansion, no tachypnea, normal percussion Gastrointestinal: soft, non-tender, non-distended, normal bowel sounds, no palpable masses, no hepatomegaly, no splenomegaly, no bruit Hosp A/P (1) Stenosis of left carotid artery Code(s): I65.22 - OCCLUSION AND STENOSIS OF LEFT CAROTID ARTERY Status: Acute (2) TIA (transient ischemic attack) Code(s): G45.9 - TRANSIENT CEREBRAL ISCHEMIC ATTACK, UNSPECIFIED Status: Acute (3) Chronic a-fib Code(s): I48.2 - CHRONIC ATRIAL FIBRILLATION * DO NOT USE * Status: Chronic (4) DM2 (diabetes mellitus, type 2) Status: Chronic - Plan TIA: Patient presented with intermittent expressive aphasia. Symptoms resolved at the time of presentation. Evidence of significant carotid stenosis. MRI without evidence of acute CVA. Left carotid stenosis: Patient has greater than 70% stenosis on the left. Given his TIA symptoms he is a candidate for intervention. Seen in consultation by Dr. Whitt. Patient will undergo TCAR procedure today. Atrial fibrillation: Rate controlled on Multaq. Eliquis held. Hyperlipidemia: Continue rosuvastatin. Hypertension: Continue with losartan.
[2020-09-11] MEDS ORDERED: Dronedarone HCl 400 MG TAB ONE (17:52)
[2020-09-11] MEDS: CEFAZOLIN 2 GM in Premix Bag 1 BAG IVPB SCH (18:15)
[2020-09-12] MEDS: Famotidine 20 MG TAB PO SCH ×2 (02:20→08:00)
[2020-09-12] MEDS: CEFAZOLIN 2 GM in Premix Bag 1 BAG IVPB SCH (02:21)
[2020-09-12] MEDS: Rosuvastatin 20 MG TAB PO SCH (02:21)
[2020-09-12] MEDS: Sodium Chloride 0.9% 1,000 ML IV SCH (06:15)
[2020-09-12 07:09] VITALS: TEMP 98
[2020-09-12] MEDS: Losartan 25 MG TAB PO SCH (08:00)
[2020-09-12] MEDS: Dronedarone HCl 400 MG TAB PO SCH (08:00)
[2020-09-12] MEDS: Clopidogrel Bisulfate 75 MG TAB PO SCH (08:00)
--- NOTE | 2020-09-12 12:00 | DIS ---
DATE OF ADMISSION: 09/10/2020 DATE OF DISCHARGE: 09/12/2020 DIAGNOSIS: Left hemispheric transient ischemic attack affecting his speech. PROCEDURE: Left carotid TCAR. DESCRIPTION OF HOSPITAL STAY: Mr. Mariscal was admitted after having two separate episodes of aphasia at home. Workup included a CT angiogram of his neck, which showed left-sided ulcerated calcified plaque in his bulb with approximately 70% stenosis. He underwent TCAR without incident. He is being discharged home today and follow up with me in 2 weeks. DISCHARGE MEDICATIONS: Unchanged from his admission regimen. Job ID: [id number]
== END 2020-09-12 08:40 | disposition home or self-care (01) | DRG 35 ==
LOC: ERS 15:36 → ERHOLD 20:55 → PACU-TCU 09-09 15:31 → OBSVTOIN 09-10 13:09 → IMCU/EMU 09-11 20:34
PROVIDERS: ADMIT Student in an Organized Health Care Education/Training Program; ATTEND Internal Medicine
PROC: 037L34Z Dilation of Left Internal Carotid Artery with Drug-eluting Intraluminal Device, Percutaneous Approach (ICD-10-PCS; principal; 2020-09-11)
DX: I65.22 Occlusion and stenosis of left carotid artery (principal); I16.1 Hypertensive emergency; I48.20 Chronic atrial fibrillation, unspecified; J44.9 Chronic obstructive pulmonary disease, unspecified; G47.33 Obstructive sleep apnea (adult) (pediatric); E11.9 Type 2 diabetes mellitus without complications; I50.9 Heart failure, unspecified; Z79.899 Other long term (current) drug therapy; Z79.51 Long term (current) use of inhaled steroids; Z79.84 Long term (current) use of oral hypoglycemic drugs; Z95.5 Presence of coronary angioplasty implant and graft; Z98.890 Other specified postprocedural states; Z79.01 Long term (current) use of anticoagulants; Z20.822 Contact with and (suspected) exposure to COVID-19; M31.6 Other giant cell arteritis
CPT/HCPCS: 36415; 36416; 70450; 70496; 70498; 70551; 71045; 76000; 80048; 80053; 80061; 84484; 85025; 85610; 85652; 85730; 87635; 93005; 93306; 93880; 94640; 94760; 95712; 95819; 95957; 96372; 96374; 96375; C1876; C1884; G0378; J0360; J0690; J1100; J1642; J1644; J1650; J2060; J2370; J2405; J2704; J2720; J3010; J7620; Q9967; S0020; U0003

== ENCOUNTER 2021-12-31 11:31 | Outpatient (CLI) | payer MEDICARE ==
[2021-12-31 12:40] LABS: #Basophils 0.1 10x3/uL (0.0-0.2); #Eosinphils 0.1 10x3/uL (0.0-0.5); #Monocytes 0.8 10x3/uL (0.0-1.1); #Neutrophils 6.4 10x3/uL (1.5-8.4); %Basophils 0.6 % (0.0-2.0); %Eosinophils 1.1 % (0.0-6.0); %Lymphocytes 24.9 % (18.0-47.0); %Monocytes 7.8 % (0.0-10.0); %Neutrophils 65.3 % (40.0-75.0); Mean Corpuscular Hemoglobin 30.6 pg (27.0-33.0); Mean Corpuscular Volume 92.7 fl (81.2-95.1); Mean Platelet Volume 9.8 fl (7.4-10.4); Platelet Count 360 10x3/uL (150-450); RBC Distribution Width 13.2 % (11.5-14.5); Red Blood Cell (RBC) Count 4.25 10x6/uL (4.32-5.72); White Blood Cell (WBC) Count 9.9 10x3/uL (3.5-10.5)
[2021-12-31 13:02] LABS: ALT (SGPT) 20 U/L (8-55); AST (SGOT) 17 U/L (5-34); Albumin 4.2 g/dL (3.4-4.8); Alkaline Phosphatase 51 U/L (40-110); Anion Gap 19 mmol/L (10-20); BUN (Urea Nitrogen) 18 mg/dL (8.4-25.7); Bilirubin, Total 0.4 mg/dL (0.2-1.2); Calc. Creatinine Clearance 0 mL/min (70-130); Calcium 9.7 mg/dL (7.8-10.44); Carbon Dioxide 24 mmol/L (23-31); Chloride 101 mmol/L (98-107); Globulin 2.7 g/dL (2.4-3.5); Glucose 97 mg/dL (83-110); Potassium 4.8 mmol/L (3.5-5.1); Protein, Total 6.9 g/dL (5.8-8.1); Sodium 139 mmol/L (136-145)
[2021-12-31 23:15] LABS: SARS-CoV-2 PCR by NAA Not Detected (NotDetected)
== END 2021-12-31 11:32 | disposition home or self-care (01) ==
LOC: LABBT 11:31
PROVIDERS: ATTEND Internal Medicine Cardiovascular Disease
DX: Z01.812 Encounter for preprocedural laboratory examination (principal); Z20.822 Contact with and (suspected) exposure to COVID-19
CPT/HCPCS: 80053; 85025; U0003; U0005

== ENCOUNTER 2022-02-11 11:47 | Outpatient (CLI) | payer MEDICARE ==
[2022-02-11 13:12] LABS: #Eosinphils 0.1 10x3/uL (0.0-0.5); #Neutrophils 6.7 10x3/uL (1.5-8.4); %Basophils 0.4 % (0.0-2.0); %Eosinophils 1.1 % (0.0-6.0); %Lymphocytes 19.6 % (18.0-47.0); %Monocytes 10.3 % (0.0-10.0); %Neutrophils 68.3 % (40.0-75.0); Hemoglobin 12.5 g/dL (13.5-17.5); Mean Corpuscular HGB CONC 32.7 g/dL (32.0-36.0); Mean Corpuscular Volume 94.8 fl (81.2-95.1); Mean Platelet Volume 9.7 fl (7.4-10.4); Platelet Count 351 10x3/uL (150-450); RBC Distribution Width 13.6 % (11.5-14.5); Red Blood Cell (RBC) Count 4.03 10x6/uL (4.32-5.72); White Blood Cell (WBC) Count 9.8 10x3/uL (3.5-10.5)
[2022-02-11 13:26] LABS: ALT (SGPT) 19 U/L (8-55); AST (SGOT) 16 U/L (5-34); Albumin 4.4 g/dL (3.4-4.8); Alkaline Phosphatase 51 U/L (40-110); Anion Gap 19 mmol/L (10-20); BUN (Urea Nitrogen) 20 mg/dL (8.4-25.7); Bilirubin, Total 0.4 mg/dL (0.2-1.2); Calc. Creatinine Clearance 0 mL/min (70-130); Calcium 9.5 mg/dL (7.8-10.44); Carbon Dioxide 23 mmol/L (23-31); Chloride 101 mmol/L (98-107); Globulin 2.6 g/dL (2.4-3.5); Glucose 105 mg/dL (83-110); Potassium 4.8 mmol/L (3.5-5.1); Sodium 138 mmol/L (136-145)
== END 2022-02-11 11:48 | disposition home or self-care (01) ==
LOC: LABBT 11:47
PROVIDERS: ATTEND Internal Medicine Cardiovascular Disease
DX: Z01.812 Encounter for preprocedural laboratory examination (principal); Z20.822 Contact with and (suspected) exposure to COVID-19
CPT/HCPCS: 80053; 85025; U0003; U0005

== ENCOUNTER 2022-02-16 08:40 | Day surgery (SDC) | payer MEDICARE ==
[2022-02-12 14:21] VITALS: BMI 39.3
[~2022-02-16 08:40] MED LIST: Iopamidol 370 76% 100 ML VIAL ONE
[2022-02-16] MEDS ORDERED: Nitroglycerin 100MG/250ML BOT 250 ML ONE (10:53)
[2022-02-16] MEDS ORDERED: Heparin 10,000 UNITS/ 10 ML VIAL ONE (10:53)
[2022-02-16] MEDS ORDERED: Verapamil 5 MG/2 ML VIAL ONE (10:53)
[2022-02-16] MEDS ORDERED: Midazolam HCl 2 mg/2 ml Vial ONE (10:58)
[2022-02-16] MEDS ORDERED: Fentanyl 100 MCG/2 ML VIAL ONE (10:58)
== END 2022-02-16 14:19 | disposition home or self-care (01) ==
LOC: SDC 08:40
PROVIDERS: ATTEND Internal Medicine Cardiovascular Disease
PROC: 4A023N7 Measurement of Cardiac Sampling and Pressure, Left Heart, Percutaneous Approach (ICD-10-PCS; principal; 2022-02-16)
PROC: B2111ZZ Fluoroscopy of Multiple Coronary Arteries using Low Osmolar Contrast (ICD-10-PCS; 2022-02-16)
DX: I25.10 Atherosclerotic heart disease of native coronary artery without angina pectoris (principal); I11.0 Hypertensive heart disease with heart failure; I50.32 Chronic diastolic (congestive) heart failure; J44.9 Chronic obstructive pulmonary disease, unspecified; I48.0 Paroxysmal atrial fibrillation; E78.00 Pure hypercholesterolemia, unspecified; G47.33 Obstructive sleep apnea (adult) (pediatric); E11.9 Type 2 diabetes mellitus without complications; I65.23 Occlusion and stenosis of bilateral carotid arteries; Z86.73 Personal history of transient ischemic attack (TIA), and cerebral infarction without residual deficits; Z79.01 Long term (current) use of anticoagulants; Z79.84 Long term (current) use of oral hypoglycemic drugs; Z79.899 Other long term (current) drug therapy; Z88.8 Allergy status to other drugs, medicaments and biological substances; Z95.5 Presence of coronary angioplasty implant and graft
CPT/HCPCS: 93458; 99152; J1644; J2250; J3010; Q9967

== ENCOUNTER 2024-03-07 06:14 | Day surgery (SDC) | payer MEDICARE ==
[2024-03-06 10:01] VITALS: BMI 38.6
[2024-03-07 07:05] LABS: #Basophils 0.03 10x3/uL (0.0-0.2); %Basophils 0.3 % (0.0-1.0); %Eosinophils 0.3 % (0.0-10.0); %Lymphocytes 12.8 % (21.0-51.0); %Monocytes 8.9 % (0.0-10.0); %Neutrophils 77.2 % (42.0-75.0); Hemoglobin 10.9 g/dL (14.0-18.0); Mean Corpuscular HGB CONC 32.1 g/dL (32.0-36.0); Mean Corpuscular Hemoglobin 32.2 pg (27.0-31.0); Mean Corpuscular Volume 100.6 fL (78.0-98.0); Mean Platelet Volume 9.8 fL (7.4-10.4); Platelet Count 403 10x3/uL (130-400); RBC Distribution Width 14.6 % (11.5-14.5); Red Blood Cell (RBC) Count 3.38 mill/uL (4.70-6.10)
[2024-03-07 07:51] LABS: Anion Gap 14 mmol/L (10-20); BUN (Urea Nitrogen) 22 mg/dL (8.4-25.7); Calc. Creatinine Clearance 73 mL/min (70-130); Calcium 9.4 mg/dL (7.8-10.44); Carbon Dioxide 22 mmol/L (23-31); Chloride 105 mmol/L (98-107); Estimated GFR 53; Glucose 135 mg/dL (83-110); Potassium 4.1 mmol/L (3.5-5.1); Sodium 137 mmol/L (136-145)
[2024-03-07] MEDS ORDERED: Norepinephrine 4 MG/4 ML VIAL ONE (08:10)
[2024-03-07] MEDS ORDERED: Lidocaine 1% PF 5 ML VIAL ONE (08:28)
[2024-03-07] MEDS ORDERED: PROPOFOL 200 MG/20 ML VIAL ONE (08:28)
[2024-03-07] MEDS ORDERED: PHENYLEPHRINE-NS 100 MCG/ML 10 ML SYRINGE ONE (08:28)
== END 2024-03-07 10:20 | disposition home or self-care (01) ==
LOC: SDC 06:14
PROVIDERS: ATTEND Internal Medicine Cardiovascular Disease
PROC: 5A2204Z Restoration of Cardiac Rhythm, Single (ICD-10-PCS; principal; 2024-03-07)
PROC: B246ZZ4 Ultrasonography of Right and Left Heart, Transesophageal (ICD-10-PCS; 2024-03-07)
DX: I48.0 Paroxysmal atrial fibrillation (principal); I48.19 Other persistent atrial fibrillation; I25.10 Atherosclerotic heart disease of native coronary artery without angina pectoris; I11.0 Hypertensive heart disease with heart failure; I50.32 Chronic diastolic (congestive) heart failure; J44.9 Chronic obstructive pulmonary disease, unspecified; E78.00 Pure hypercholesterolemia, unspecified; D50.8 Other iron deficiency anemias; G47.33 Obstructive sleep apnea (adult) (pediatric); E11.9 Type 2 diabetes mellitus without complications; Z79.84 Long term (current) use of oral hypoglycemic drugs; Z79.02 Long term (current) use of antithrombotics/antiplatelets; Z79.899 Other long term (current) drug therapy; Z88.8 Allergy status to other drugs, medicaments and biological substances; Z86.73 Personal history of transient ischemic attack (TIA), and cerebral infarction without residual deficits
CPT/HCPCS: 80048; 85025; 92960; 93005; 93010; 93312; J2704

== ENCOUNTER 2024-03-28 05:59 | Day surgery (SDC) | payer MEDICARE ==
[2024-03-27 12:03] VITALS: BMI 37.9
[2024-03-28 07:09] LABS: #Basophils 0.04 10x3/uL (0.0-0.2); %Basophils 0.6 % (0.0-1.0); %Eosinophils 0.8 % (0.0-10.0); %Lymphocytes 19.6 % (21.0-51.0); %Neutrophils 69.7 % (42.0-75.0); Hematocrit 38.6 % (42.0-52.0); Hemoglobin 12.4 g/dL (14.0-18.0); Mean Corpuscular HGB CONC 32.1 g/dL (32.0-36.0); Mean Corpuscular Hemoglobin 31.8 pg (27.0-31.0); Mean Platelet Volume 9.4 fL (7.4-10.4); Platelet Count 392 10x3/uL (130-400); RBC Distribution Width 14.3 % (11.5-14.5)
[2024-03-28 07:30] LABS: Anion Gap 14 mmol/L (10-20); BUN (Urea Nitrogen) 18 mg/dL (8.4-25.7); Calc. Creatinine Clearance 80 mL/min (70-130); Calcium 9.6 mg/dL (7.8-10.44); Carbon Dioxide 26 mmol/L (23-31); Chloride 106 mmol/L (98-107); Estimated GFR 59; Glucose 125 mg/dL (83-110); Potassium 4.2 mmol/L (3.5-5.1); Sodium 142 mmol/L (136-145)
[2024-03-28] MEDS ORDERED: PROPOFOL 200 MG/20 ML VIAL ONE (07:55)
== END 2024-03-28 09:02 | disposition home or self-care (01) ==
LOC: SDC 05:59
PROVIDERS: ATTEND Internal Medicine Cardiovascular Disease
DX: I48.19 Other persistent atrial fibrillation (principal); I08.1 Rheumatic disorders of both mitral and tricuspid valves; E11.9 Type 2 diabetes mellitus without complications; I25.10 Atherosclerotic heart disease of native coronary artery without angina pectoris; I11.0 Hypertensive heart disease with heart failure; I50.32 Chronic diastolic (congestive) heart failure; I48.0 Paroxysmal atrial fibrillation; E78.00 Pure hypercholesterolemia, unspecified; D50.8 Other iron deficiency anemias; I65.23 Occlusion and stenosis of bilateral carotid arteries; G47.33 Obstructive sleep apnea (adult) (pediatric); G54.9 Nerve root and plexus disorder, unspecified; Z98.890 Other specified postprocedural states; Z79.84 Long term (current) use of oral hypoglycemic drugs; Z79.899 Other long term (current) drug therapy; Z88.8 Allergy status to other drugs, medicaments and biological substances
CPT/HCPCS: 80048; 85025; 92960; 93005; 93312; J2704; 93010

== ENCOUNTER 2024-06-11 14:24 | Emergency (ER) | payer MEDICARE ==
[2024-06-11 17:15] LABS: ALT (SGPT) 11 U/L (8-55); AST (SGOT) 13 U/L (5-34); Albumin 3.1 g/dL (3.4-4.8); Alkaline Phosphatase 82 U/L (40-110); Anion Gap 14 mmol/L (10-20); BUN (Urea Nitrogen) 19 mg/dL (8.4-25.7); Bilirubin, Total 0.6 mg/dL (0.2-1.2); Calc. Creatinine Clearance 0 mL/min (70-130); Calcium 9.2 mg/dL (7.8-10.44); Carbon Dioxide 27 mmol/L (23-31); Chloride 101 mmol/L (98-107); Estimated GFR 50; Globulin 3.5 g/dL (2.4-3.5); Glucose 104 mg/dL (83-110); INR-International Normal Ratio 1.4; PTT 39.5 sec (22.9-36.1); Potassium 3.9 mmol/L (3.5-5.1); Protein, Total 6.6 g/dL (5.8-8.1); Prothrombin Time 17.1 sec (12.0-14.7); Sodium 138 mmol/L (136-145)
[2024-06-11 18:18] LABS: Bacteria/HPF None Seen HPF (None Seen); Bilirubin Negative (Negative); Blood, Urine 3+ (Negative); CAUTI Indications for Culture Pelvic or flank pain; Clarity Turbid (Clear); Glucose, Urine (Dipstick) Greater than 1000 mg/dL (Negative); Ketone, Urine Negative (Negative); Leukocyte 500 Leu/uL (Negative); Nitrite Negative (Negative); Protein, Urine (Dipstick) 70 mg/dL (Neg-Trace); RBC/HPF 21-50 HPF (0-3); Specific Gravity, Urine 1.017 (1.002-1.036); Squamous Epithelial 0-3 HPF (0-3); Urobilinogen Normal mg/dL (Less than 2); WBC/HPF Greater than 50 HPF (0-3)
[2024-06-11 18:20] LABS: Urine Culture Reflex Yes Yes
[2024-06-11 18:50] LABS: #Basophils 0.03 10x3/uL (0.0-0.2); %Basophils 0.4 % (0.0-1.0); %Eosinophils 1.3 % (0.0-10.0); %Monocytes 9.8 % (0.0-10.0); %Neutrophils 65.1 % (42.0-75.0); Hematocrit 36.6 % (42.0-52.0); Hemoglobin 11.6 g/dL (14.0-18.0); Mean Corpuscular HGB CONC 31.7 g/dL (32.0-36.0); Mean Corpuscular Hemoglobin 31.1 pg (27.0-31.0); Mean Corpuscular Volume 98.1 fL (78.0-98.0); Mean Platelet Volume 10.1 fL (7.4-10.4); Platelet Count 308 10x3/uL (130-400); RBC Distribution Width 16.4 % (11.5-14.5); Red Blood Cell (RBC) Count 3.73 mill/uL (4.70-6.10)
== END 2024-06-11 19:16 | disposition home or self-care (01) ==
LOC: ERS 14:24
DX: S51.811A Laceration without foreign body of right forearm, initial encounter (principal); N39.0 Urinary tract infection, site not specified; I11.0 Hypertensive heart disease with heart failure; I50.9 Heart failure, unspecified; I48.91 Unspecified atrial fibrillation; E11.9 Type 2 diabetes mellitus without complications; X58.XXXA Exposure to other specified factors, initial encounter; Z55.6 Problems related to health literacy; Z79.84 Long term (current) use of oral hypoglycemic drugs; Z79.01 Long term (current) use of anticoagulants; Z79.899 Other long term (current) drug therapy
CPT/HCPCS: 12001; 36415; 80053; 81001; 85025; 85610; 85730; 87086; 99283

== ENCOUNTER 2024-10-04 12:31 | Outpatient (CLI) | payer MEDICARE ==
[2024-10-04 13:15] LABS: #Basophils 0.04 10x3/uL (0.0-0.2); %Basophils 0.5 % (0.0-1.0); %Eosinophils 0.9 % (0.0-10.0); %Lymphocytes 22.3 % (21.0-51.0); %Monocytes 6.8 % (0.0-10.0); %Neutrophils 69.3 % (42.0-75.0); Hematocrit 37.1 % (42.0-52.0); Mean Corpuscular HGB CONC 32.3 g/dL (32.0-36.0); Mean Corpuscular Hemoglobin 31.3 pg (27.0-31.0); Mean Corpuscular Volume 96.6 fL (78.0-98.0); Mean Platelet Volume 9.5 fL (7.4-10.4); Platelet Count 370 10x3/uL (130-400); RBC Distribution Width 14.1 % (11.5-14.5); Red Blood Cell (RBC) Count 3.84 mill/uL (4.70-6.10)
[2024-10-04 13:33] LABS: Anion Gap 14 mmol/L (10-20); BUN (Urea Nitrogen) 25 mg/dL (8.4-25.7); Calc. Creatinine Clearance 0 mL/min (70-130); Calcium 9.2 mg/dL (7.8-10.44); Carbon Dioxide 23 mmol/L (23-31); Chloride 107 mmol/L (98-107); Estimated GFR 60; Glucose 148 mg/dL (83-110); Potassium 4.3 mmol/L (3.5-5.1); Sodium 140 mmol/L (136-145)
== END 2024-10-04 12:32 | disposition home or self-care (01) ==
LOC: LABBT 12:31
PROVIDERS: ATTEND Surgery
DX: Z01.818 Encounter for other preprocedural examination (principal); K43.2 Incisional hernia without obstruction or gangrene
CPT/HCPCS: 80048; 85025; 93005; 93010

== ENCOUNTER 2024-10-05 06:13 | Day surgery (SDC) | payer MEDICARE ==
[2024-10-04 12:35] VITALS: BMI 33.9
[2024-10-05] MEDS ORDERED: EPINEPHrine 1 MG/ML VIAL ONE (06:39)
[2024-10-05] MEDS ORDERED: Bupivacaine 0.25% HCL 30 ML VIAL ONE (06:39)
[2024-10-05] MEDS ORDERED: Lidocaine 1% MPF 2 ML VIAL ONE (06:48)
[2024-10-05] MEDS ORDERED: Rocuronium Bromide 10 MG/ML (10ML VIAL) ONE (07:01)
[2024-10-05] MEDS ORDERED: fentaNYL PF 100 MCG/2 ML SYRINGE ONE ×3 (07:01→09:13)
[2024-10-05] MEDS ORDERED: PROPOFOL 20 ML ONE (07:01)
[2024-10-05] MEDS ORDERED: Lidocaine 2% PF 5 ML VIAL ONE (07:01)
[2024-10-05] MEDS ORDERED: PHENYLEPHRINE-NS 100 MCG/ML 10 ML SYRINGE ONE (07:02)
[2024-10-05] MEDS ORDERED: Sodium Chloride 0.9% 100 ML ONE (07:15)
[2024-10-05] MEDS ORDERED: CEFAZOLIN 2 GM VIAL ONE (07:15)
[2024-10-05] MEDS ORDERED: MINERAL OIL/WHITE PETROLATUM 3.5 GM TUBE ONE (07:40)
[2024-10-05] MEDS ORDERED: Ondansetron PF 4 MG/2 ML Vial ONE (07:47)
[2024-10-05] MEDS ORDERED: Dexamethasone 4 mg/ml Vial ONE (07:47)
[2024-10-05] MEDS ORDERED: SUGAMMADEX SODIUM 200 MG/2 ML VIAL ONE (07:52)
[2024-10-05] MEDS ORDERED: Esmolol 100 MG/10 ML VIAL ONE (08:32)
[2024-10-05] MEDS ORDERED: Labetalol HCl 100 MG/20 ML VIAL ONE (09:13)
[2024-10-05] MEDS ORDERED: HYDROcodone/Acetaminophen 5/325 mg Tablet ONE (11:55)
== END 2024-10-05 12:20 | disposition home or self-care (01) ==
LOC: SDC 06:13
PROVIDERS: ATTEND Surgery
PROC: 0WUF4JZ Supplement Abdominal Wall with Synthetic Substitute, Percutaneous Endoscopic Approach (ICD-10-PCS; principal; 2024-10-05)
DX: K43.2 Incisional hernia without obstruction or gangrene (principal); I10 Essential (primary) hypertension; E11.9 Type 2 diabetes mellitus without complications; J44.9 Chronic obstructive pulmonary disease, unspecified; M10.9 Gout, unspecified; F32.A Depression, unspecified; Z95.5 Presence of coronary angioplasty implant and graft; Z90.49 Acquired absence of other specified parts of digestive tract; Z98.890 Other specified postprocedural states; Z88.8 Allergy status to other drugs, medicaments and biological substances; Z79.02 Long term (current) use of antithrombotics/antiplatelets; Z79.51 Long term (current) use of inhaled steroids; Z79.01 Long term (current) use of anticoagulants; Z79.899 Other long term (current) drug therapy
CPT/HCPCS: 49593; A4314; C1781; J0171; J0665; J1100; J2405; J2704; S2900

== ENCOUNTER 2025-07-25 12:18 | Emergency (ER) | payer MEDICARE ==
[2025-07-25 13:09] LABS: #Basophils 0.05 10x3/uL (0.0-0.2); #Eosinophils 0.09 10x3/uL (0.0-0.7); #Monocytes 0.83 10x3/uL (0.11-0.59); #Neutrophils 7.16 10x3/uL (1.40-6.50); %Basophils 0.5 % (0.0-1.0); %Eosinophils 0.9 % (0.0-10.0); %Lymphocytes 15.9 % (21.0-51.0); %Monocytes 8.5 % (0.0-10.0); %Neutrophils 73.8 % (42.0-75.0); Hematocrit 39.9 % (42.0-52.0); Hemoglobin 13.0 g/dL (14.0-18.0); Mean Corpuscular Hemoglobin 30.9 pg (27.0-31.0); Mean Corpuscular Volume 94.8 fL (78.0-98.0); Platelet Count 300 10x3/uL (130-400); Red Blood Cell (RBC) Count 4.21 mill/uL (4.70-6.10); White Blood Cell (WBC) Count 9.72 10x3/uL (4.8-10.8)
[2025-07-25] MEDS ORDERED: Ondansetron PF 4 MG/2 ML Vial ONE (13:16)
[2025-07-25 13:29] LABS: ALT (SGPT) 10 U/L (Less than 45); AST (SGOT) 20 U/L (11-34); Albumin 3.6 g/dL (3.1-4.5); Alkaline Phosphatase 70 U/L (40-110); Anion Gap 15 mmol/L (10-20); BUN (Urea Nitrogen) 22 mg/dL (8.4-25.7); Bilirubin, Total 0.6 mg/dL (0.3-1.2); Calc. Creatinine Clearance 0 mL/min (70-130); Calcium 9.0 mg/dL (7.8-10.44); Carbon Dioxide 27 mmol/L (23-31); Chloride 103 mmol/L (98-107); Globulin 3.3 g/dL (2.4-3.5); Glucose 115 mg/dL (83-110); Potassium 4.2 mmol/L (3.5-5.1); Sodium 141 mmol/L (136-145)
[2025-07-25] MEDS ORDERED: Iopamidol-370 76% 500 ML MDV (1 ML CHARGE) ONE (14:15)
[2025-07-25] MEDS ORDERED: diphenhydrAMINE 50 MG/ML VIAL ONE (15:21)
[2025-07-25] MEDS ORDERED: Metoclopramide HCl 10 MG (2 mL) VIAL ONE (15:21)
[2025-07-25] MEDS ORDERED: Potassium Bicarbonate/Cit Ac 20 MEQ TAB ONE (15:53)
[2025-07-25] MEDS ORDERED: Furosemide 40 MG (4 mL) VIAL ONE (15:53)
== END 2025-07-25 17:51 | disposition home or self-care (01) ==
LOC: ERS 12:18
DX: R51.9 Headache, unspecified (principal); I48.91 Unspecified atrial fibrillation; I11.0 Hypertensive heart disease with heart failure; I50.9 Heart failure, unspecified; E11.9 Type 2 diabetes mellitus without complications; J44.9 Chronic obstructive pulmonary disease, unspecified; Z86.73 Personal history of transient ischemic attack (TIA), and cerebral infarction without residual deficits; Z95.5 Presence of coronary angioplasty implant and graft; Z79.01 Long term (current) use of anticoagulants; Z79.84 Long term (current) use of oral hypoglycemic drugs; Z79.899 Other long term (current) drug therapy
CPT/HCPCS: 70496; 70498; 80053; 85025; 93005; 96374; 96375; J1200; J1940; J2270; J2405; J2765; Q9967